=== PATIENT | male | born 1950 | race Caucasian/White ===

== ENCOUNTER 2021-04-23 09:59 | Outpatient (CLI) | payer MEDICARE, SELFPAY ==
--- NOTE | 2021-04-23 13:17 | WPDPFTINT ---
PFT Procedure Performed PFT Procedure Performed Plethysmography (Lung Vol) Diffusing Cap (DLCO) Flow Vol Loop Spirometry w/o Bronchodil PFT Interpretation This is a pulmonary function test with spirometry, plethysmography and diffusing capacity. The test was performed and results interpreted in accordance with the 2019 and 2005 ATS/ERS Task Force guidelines respectively using the Global Lung Function Initiative-2012 reference equations. Patient demonstrated good effort and cooperation. Reproducibility criteria were met. The quality of the spirometry maneuver was Grade A. Findings: Spirometry: there is decreased maximal expiratory airflow at all lung volumes with concave expiratory flow tracing. The contour the inspiratory flow tracing is normal the FVC is 2.76 L, 66% predicted. The FEV1 is 1.00 L, 32% predicted. The FEV1: FVC ratio is 36%. Plethysmography: Total lung capacity is 7.29 L, 107% predicted. The functional residual capacity is 5.46 L, 153% predicted. The residual volume is 4.53 L, 193% predicted. Diffusing capacity: The diffusion capacity unadjusted for hemoglobin is 10.8, 41% predicted. The diffusing capacity adjusted for alveolar volume is 2.99, 74% predicted. Impression: There is a very severe obstructive abnormality. The increase in residual volume is consistent with air trapping from an obstructive abnormality. Hyperinflation is present is demonstrated by the increase in functional residual capacity and is consistent with an obstructive abnormality. The diffusing capacity unadjusted for hemoglobin is moderately decreased and normalizes when adjusted for alveolar volume. There are no prior studies for comparison
== END 2021-04-23 10:00 | disposition home or self-care (01) ==
LOC: ANHPFT 10:03
PROVIDERS: Visit Provider Internal Medicine Cardiovascular Disease
DX: R06.00 Dyspnea, unspecified (principal); R94.2 Abnormal results of pulmonary function studies; Z87.891 Personal history of nicotine dependence
CPT/HCPCS: 94375; 94726; 94729

== ENCOUNTER 2021-07-11 12:31 | Outpatient (CLI) | payer MEDICARE, SELFPAY ==
--- NOTE | 2021-07-11 15:54 | WPDSIXMINUTE ---
Six Minute Walk Procedure Procedure Performed Pulmonary Stress Test (6 min walk) Six Minute Walk This is a 6 minute walk test. The test was performed and interpreted in accordance with the 2014 ERS/ATS task force guidelines. Findings: The patient's resting room air oxygen saturation measured by pulse oximetry was 96% and heart rate was 118 bpm. Patient ambulated for 244 meters and oxygen saturation remained 90 to 94%. Heart rate at the end of the study was 105 bpm. The patient did not qualify for supplemental oxygen at rest or with ambulation. There are no prior studies for comparison.
== END 2021-07-11 12:32 | disposition home or self-care (01) ==
PROVIDERS: PCP Internal Medicine; Visit Provider Internal Medicine Pulmonary Disease
DX: J40 Bronchitis, not specified as acute or chronic (principal); J44.9 Chronic obstructive pulmonary disease, unspecified; R91.1 Solitary pulmonary nodule; Z72.0 Tobacco use
CPT/HCPCS: 94618

== ENCOUNTER 2021-07-11 12:38 | Outpatient (CLI) | payer MEDICARE, SELFPAY ==
--- NOTE | ~2021-07-11 | CT_ITS ---
EXAMINATION: CT diagnostic chest wo con DATE: 07/11/2021 13:41 INDICATION: Chronic obstructive pulmonary disease TECHNIQUE: Computed tomography (CT) of the chest was performed without intravenous contrast. Automate d exposure control and iterative reconstruction technique were employed. Exam dose: 156.64 mGy-cm to yifan exam DLP. COMPARISON: 12/11/2020 CT chest FINDINGS: There are several areas of mild focal tree-in-bud infiltrate in the lower lobes, right grea ter than left, which may represent mild focal areas of pneumonia or postinfection residue. No pulmonary infiltrate or consolidation is noted otherwise. Mild emphysematous changes. Aortic, coronary and great vessel calcification. No thoracic aortic aneurysm. No hilar or mediastinal mass lesion or lymphadenopathy. There is an approximately 7.7 mm stone in the dependent aspect of the neck of the gallbladder. No gal lbladder wall thickening or gallbladder distention is noted. Splenomegaly Partially visualized upper right anterior wall spigelian hernia Status post lower anterior cervical spine surgical fusion. Prominent degenerative disc disease in the lower cervical spine Degenerative change of the thoracic spine. Mild T6 anterior wedge compression fracture deformity, lik rick chronic. Moderate degenerative disease and mild retrolisthesis at L1-2. Multiple old healed bilateral rib fractures.. IMPRESSION: Several small mild focal areas of chronic tree-in-bud infiltrate in the lower lobes, rig ht greater than left,, likely mild postinfection residue/scarring Splenomegaly Cholelithiasis Right upper anterior abdominal wall spigelian hernia Reviewed, dictated and finalized at [facility]. Reviewed, dictated and finalized at location [facility]. IMPRESSION: Several small mild focal areas of chronic tree-in-bud infiltrate i n the lower lobes, right greater than left,, likely mild postinfection residue/ scarring Splenomegaly Cholelithiasis Right upper anterior abdominal wall spigelian hernia
== END 2021-07-11 12:39 | disposition home or self-care (01) ==
LOC: ANHIMG 12:39
PROVIDERS: PCP Internal Medicine; Visit Provider Internal Medicine Pulmonary Disease
DX: R91.1 Solitary pulmonary nodule (principal); J44.9 Chronic obstructive pulmonary disease, unspecified; R16.1 Splenomegaly, not elsewhere classified; K80.20 Calculus of gallbladder without cholecystitis without obstruction; K43.9 Ventral hernia without obstruction or gangrene; I70.0 Atherosclerosis of aorta
CPT/HCPCS: 71250; 94618

== ENCOUNTER 2023-12-24 10:11 | Outpatient (CLI) | payer MEDICARE, SELFPAY ==
--- NOTE | ~2023-12-24 | CT_ITS ---
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 Addition al 3D reconstructions utilizing coronal maximum intensity projection (MIP) were performed. Automated exposure control and iterative reconstruction technique were employed. The dose-length product was 26 8.96 mGy-cm. COMPARISON: 07/11/2021 FINDINGS: Moderate emphysema with mild bronchiectasis. Interval increase in size of a previously 5 x 4 mm, curr ently 7 x 5 mm nodule in the posterior basilar segment of the left lower lobe. There are a few additi onal scattered unchanged <4 mm nodules consistent with old granulomatous disease. No pneumonia, pulmo nary edema or pleural effusion. Heart size normal. Atherosclerotic coronary artery calcification. Ect atic ascending thoracic aorta measuring up to 4.2 cm in maximal diameter. No pathologically enlarged abdominal or pelvic lymphadenopathy. Partially visualized splenomegaly measuring at least 14.6 cm in maximal diameter with scattered small calcified nodules consistent with old granulomatous disease. Th ere are couple calcified gallstones in the gallbladder which is dilated to 4.5 cm diameter with subtl e indistinctness to the boundaries between the gallbladder and surrounding fat which raises some susp icion for acute cholecystitis. There is intra and extrahepatic ductal or ductal dilation the common b ile duct measuring up to 1.4 cm. The distal common bile duct extends below the inferior margin of jordyn ging precluding assessment for a distal obstructing stone or mass. Moderate to severe upper thoracic prominent spondylosis. Partially visualized C4-C6 instrumented anterior spinal fusion with plate and screw fixation. Multiple old healed bilateral rib fractures. IMPRESSION: 1. Moderate emphysema with slight increase in size in the 2 1/2 years since the prior study of a now 7 x 5 mm indeterminate nodule in the posterior basilar segment of the left lower lobe. Recommend 6 mo nth follow-up low-dose noncontrast chest CT. 2. Cholelithiasis with intra and extra hepatic biliary ductal dilation and dilation of the gallbladde r raising concern for distal obstructing lesion and possible acute cholecystitis. Correlate for Kyara y sign and with liver function tests. Could consider either MRCP or HIDA scan for further evaluation as clinically indicated. 3. Ectatic ascending thoracic aorta measuring up to 4.2 cm maximal diameter. 4. Nonspecific splenomegaly. Reviewed, dictated and finalized at location [facility]. IMPRESSION: 1. Moderate emphysema with slight increase in size in the 2 1/2 years since the prior study of a now 7 x 5 mm indeterminate nodule in the posterior basilar se gment of the left lower lobe. Recommend 6 month follow-up low-dose noncontrast chest CT. 2. Cholelithiasis with intra and extra hepatic biliary ductal dilation and dila tion of the gallbladder raising concern for distal obstructing lesion and possi ble acute cholecystitis. Correlate for Molina sign and with liver function test s. Could consider either MRCP or HIDA scan for further evaluation as clinically indicated. 3. Ectatic ascending thoracic aorta measuring up to 4.2 cm maximal diameter. 4. Nonspecific splenomegaly.
== END 2023-12-24 10:12 | disposition home or self-care (01) ==
PROVIDERS: PCP Nurse Practitioner Family; Visit Provider Nurse Practitioner Family
DX: I71.21 Aneurysm of the ascending aorta, without rupture (principal); J43.9 Emphysema, unspecified; R91.1 Solitary pulmonary nodule; K80.20 Calculus of gallbladder without cholecystitis without obstruction; K83.8 Other specified diseases of biliary tract; K82.8 Other specified diseases of gallbladder; R16.1 Splenomegaly, not elsewhere classified
CPT/HCPCS: 71250

== ENCOUNTER 2025-02-05 10:27 | Outpatient (CLI) | payer MEDICARE, SELFPAY ==
--- OUTSIDE RECORDS SUMMARY | 2024-01-03 08:30 | XMS_ITS ---
Author Organization [facility] Address [address] [place] [address] Care Team Providers Care Fire Regulator Name Role Phone Angelita Smith MD Primary Care Provider Unavail teena BAUMAN MD, JARON Unavailable REASON FOR VISIT ERCP INPT Encounters Encounter Location Date Provider Diagnosis [facility] - Op [address] GI Scheduling [place], [place] [id number] 01/03/2024 JARONTK BAUMAN Plan Of Treatment No Information Progress Notes * VANESSAARGENIS Reyes ADOB: (74 yo M)Acc No.[id number]:01/03/2024 Patient: Reyes DAVILA Provider: Charleen Bauman MD, FASGE :1950 A ge:73 Y S ex:Male Date:01/03/2024 Address:[address], [facility] Pcp:Angelita Smith MD * * Electronic signature of CONSTANCE BAUMAN MD, MD on 02/05/2025 at 12:37 PM EST Sign off status: Pending * Provider: Charleen Bauman MD, FASGE Date: 0 01/03/2024 Generated for Printi ng/Faxing/eTransmitting on: 1 04/07/2024 12:37 PM EST
--- OUTSIDE RECORDS SUMMARY | 2024-01-31 08:00 | XMS_ITS ---
Author Organization [facility] Address [address] [place] [address] Care Team Providers Care Applications Engineer Manufacturing Name Role Phone Luis ORDONEZ, Angelita Primary Care Provider Unavail teena BAUMAN MD, JARON Unavailable [phone] REASON FOR VISIT ERCP w/stent pull/No Auth Req* Encounters Encounter Location Date Provider Diagnosis [facility] - Op [address] GI Scheduling [place], [place] [id number] 01/31/2024 JARON MITUL Plan Of Treatment No Information Progress Notes * Reyes BALTAZAR ADOB: (74 yo M)Acc No.[id number]:01/31/2024 Patient: Reyes DAVILA Provider: Charleen Bauman MD, FASGE :1950 A ge:73 Y S ex:Male Date:01/31/2024 Address:[facility] [address], [facility] [place] Pcp:Angelita Smith MD * * Electronic signature of CONSTANCE BAUMAN MD, MD on 02/05/2025 at 12:37 PM EST Sign off status: Pending * Provider: Charleen Bauman MD, FASGE Date: Generated for Printi ng/Faxing/eTransmitting on: 04/07/2024 12:37 PM EST
--- NOTE | ~2025-02-05 | CT_ITS ---
EXAMINATION: CT diagnostic chest wo con DATE: 02/05/2025 11:04 INDICATION: Nonspecific findings of the lungs. Emphysema. Follow-up 6 mm left lower lobe nodule. TECHNIQUE: Computed tomography (CT) of the chest was performed without intravenous contrast. The dose-length product was 100.86 mGy-cm. Automated exposure control and iterative reconstruction technique were employed. COMPARISON: Comparison to multiple prior studies sequentially, with oldest reviewed study dated 07/11/2021. FINDINGS: Heart size normal. No significant pleural or pericardial effusion. No thoracic lymphadenopathy. Mild ectasia of the ascending thoracic aorta measuring 4 cm with atherosclerosis. There is splenomegaly. There is a 2-3 mm right upper lobe nodule unchanged. There is a stable 5 mm left lower lobe nodule unchanged from prior study. There is a 3 mm left lower lobe nodule, image 94. There is emphysema. No new pulmonary nodules or masses. No endobronchial lesions. IMPRESSION: 1. Lung-RADS category 2: Benign appearance or behavior. Continue annual screening with noncontrast low-dose chest CT in 12 months. Reviewed, dictated and finalized at location O. TER PLATE IMPRESSION: 1. Lung-RADS category 2: Benign appearance or behavior. Continue annual screeni ng with noncontrast low-dose chest CT in 12 months.
--- OUTSIDE RECORDS SUMMARY | 2025-02-05 11:36 | XMS_ITS | Encounter Summary ---
Author Organization [facility] Address [facility] [place] [address] Care Team Providers Care Tractor Trailer Mechanic Name Role Phone Angelita Smith MD Primary Care Provider [phone] Lucy Malik MD Primary Care Provider [phone] [facility] Primary Care Provider + Encounter Details Date Type Department Care Team (Latest Contact Info) Description 05/09/2021 MyChart Message Enc [facility] Family & Internal Medicine [facility] [id number] [place] [phone] Angelita Smith [place] [id number] [place] [address] Reyes Helton, Barrel Filler at [facility] Social History Tobacco Use Types Packs/Day Years Used Date Smoking Tobacco: Former Cigarettes 2 31 0 10/03/1970 - 10/03/2001 Cigars Smokeless Tobacco: Never Comments:Patient smokes a ci gar 3-4 in a year Alcohol Use Standard Drinks/Week Comments Not Currently 0 (1 standard drink = 0.6 oz pur e alcohol) 12 pack of beer a day PHQ-2 Answer Date Recorded PHQ-2 Score - If the patient scores above 3, please move on to questions 3-9 0 04/10/2020 Sex and Gender Information Value Date Recorded Sex Assigned at Not on file Legal Sex Male 4:11 PM CDT Gender Identity Not on file Sexual Orientation Not on file documented as of this encounter Plan of Treatment Not on file documented as of this encounter Visit Diagnoses Not on filedocumented in this encounter Additional Health Concerns Assessment Noted Time PHQ-9 Depression Total Score: 0 04/10/19 21 3:[address] MAN documented as of this encounter Care Teams Tractor Trailer Mechanic Relationship Specialty Start Date End Date Angelita Smith MD PCP - General INTERNAL MEDICINE 10/10/18 06/17/22 [place] [phone] [facility] [address] [place] [address] PCP - General FAMILY PRACTICE 06/18/22 05/18/23 Ana Luisa Reed, NIGHT COORDINATOR- [address] [place] [address] [place] [address] PCP - General Nurse Practitioner Family 01/01/24 documented as of this encounter
--- OUTSIDE RECORDS SUMMARY | 2025-02-05 11:36 | XMS_ITS | Clinical Summary ---
Author Organization [employer] Address [address] [place] [address] Care Team Providers Care Manager Life Name Role Phone Angelita Smith MD Primary Care Provider [phone] Source Comments [facility] [employer],non-owned Affiliates and Associated Physician Practices is amultiple site organization consisting of ambulatory clinics and hospital sitesin [place], [place] and [place]. This disclosure is being madepursuant to the Care Everywhere program and may not contain all information available regarding this patient. Last updated [employer] Allergies No known active allergies Medications * Be aware that medications may not be up to date on this document. Alwaysverify current medications with the patient. losartan (COZAAR) 50 MG tablet Take 50 mg by mouth once daily 3 12/15/2018 Active HYDROcodone-javier taminophen (NORCO) 5-325 MG tablet TAKE 1 TO 2 TABLETS BY MOUTH EVERY 4 HOURS NEEDED FOR PAIN 0 01/11/2019 Active albuterol HFA (PROAIR HFA) 108 (90 Base) MCG/ACT inhaler INHALE 1 TO 2 PUFFS BY MOUTH 4 TIMES DAILY NEEDED 09/06/2018 Active cephalexin (KEFLEX) 500 MG capsuleIndicati ons:tid prn Take 500 mg by mouth 3 times daily Tid prn Reasons: tid prn 2 01/10/2019 Active mesalamine EC (LIALDA) 1.2 g tablet TAKE 2 TABLETS BY MOUTH ONCE DAILY WITH FOOD 3 10/11/2018 Active VITAMIN D, CHOLECALCIFEROL , PO Take 25 mcg by mouth once daily Active Ascorbic Acid 1000 MG Take by mouth once daily Active Cyanocobalamin (B-12) 500 MCG Take by mouth once daily Active Potassium Iodide 32.5 (24 I) MGIndications:2 04mg + 225mcg Take by mouth once daily Reasons: 204mg + 225mcg Active phenylephrine (SUDAFED PE) 10 MG tablet Take 10 mg by mouth 4 times daily Active Active Problems No known active problems Family History Medical History Relation Name Comments Arthritis - Rheumatoid Father Hypertension Father Cancer Sister 4 Diabetes Sister 5 Heart Failure Sister 6 Hypertension Sister 7 Arthritis - Osteo Sister 8 Relation Name Status Comments Brother Alive Father Mother Sister 1 Alive Sister 2 Sister 3 Sister 4 Sister 5 Sister 6 Sister 7 Sister 8 Social History Tobacco Use Types Packs/Day Years Used Date Smoking Tobacco: Former Cigarettes 2 40 1 - 02/02/2004 Smokeless Tobacco: Never Alcohol Use Standard Drinks/Week Comments Yes 84 (1 standard drink = 0.6 oz pu re alcohol) Sex and Gender Information Value Date Recorded Sex Assigned at Not on file Legal Sex Male 6:08 AM PHYSICIAN COMPENSATION ANALYST Gender Identity Not on file Sexual Orientation Not on file Last Filed Vital Signs Vital Sign Reading Time Taken Comments Blood Pressure 163/101 03/07/2019 3:12 PM PHYSICIAN COMPENSATION ANALYST Pulse 98 03/07/2019 3:12 PM PHYSICIAN COMPENSATION ANALYST Temperature 36.3 C (97.3 F) 03/07/2019 2:42 PM PHYSICIAN COMPENSATION ANALYST Respiratory Rate 13 03/07/2019 3:12 PM PHYSICIAN COMPENSATION ANALYST Oxygen Saturation 99% 03/07/2019 3:12 PM PHYSICIAN COMPENSATION ANALYST Inhaled Oxygen Concentration - - Weight 83.9 kg (185 lb) 03/07/2019 12:56 PM PHYSICIAN COMPENSATION ANALYST Height 175.3 cm (5' 9) 03/07/2019 12:56 PM PHYSICIAN COMPENSATION ANALYST Body Mass Index 27.32 03/07/2019 12:56 PM PHYSICIAN COMPENSATION ANALYST Plan of Treatment Health Maintenance Due Date Last Done Comments COLOGUARD (AGES 45-75) - COL ON CA SCREENING 1950 CT COLONOGRAPHY - COLON CA SCREENING 1950 FIT - COLON CA SCREENING 1950 FLEX SIG - COLON CA SCREENING 1950 LIPID TESTING 1950 DTAP/TDAP/TD VACCINES (1 - Tdap) 09/24/1971 PNEUMOCOCCAL VACCINE 50+ (1 of 1 - PCV) 2002 ZOSTER VACCINE (1 of 2) 2002 AAA SCREENING 2017 SCREENING FOR DIABETES 02/09/2022 02/09/2019 DEPRESSION SCREENING 04/05/2024 MEDICARE AWV CALENDAR YEAR 2024 COVID-19 VACCINE (4 - 2024-2 6 season) 2024 10/22/2021, 08/28/2020, 07/31/2020 INFLUENZA VACCINE (#1) 2024 06/05/2020 Respiratory Syncytial Virus (RSV) Vaccine Pt: or over 60 yrs (1 - 1-dose 75+ series) 09/24/2027 COLON MONITORING 03/07/2029 03/07/2019, 03/07/2019 COLONOSCOPY - COLON CA SCREENING 03/07/2029 03/07/2019, 03/07/2019 Colorectal Cancer Screening 03/07/2029 HEPATITIS C SCREENING Completed 02/09/2019 HEPATITIS B VACCINE Aged Out No longe r eligible based on patient's age to complete this topic HIB VACCINE Aged Out No longer eligi ble based on patient's age to complete this topic HPV VACCINE Aged Out No longer eligi ble based on patient's age to complete this topic MENINGOCOCCAL (Group B) VACCINE SHARED DECISION-MAKING Aged Out No longer eligible based on patient's age to complete this topic MENINGOCOCCAL GROUPS A/C/Y/W VACCINE Aged Out No longer eligible b ased on patient's age to complete this topic Goals Goal Patient Goal Type Associated Problems Recent Progress Patient-Stated? Author Medication Management General On track( 019 1:48 PM CDT) Shani Rivera, RN Note: Expected end date: ongoing Interventions: Take all medications as prescribed Let your doctor know right away about any changes in your medications Make sure to request a refill of your medication at least one week prior to your last dose Procedures Procedure Name Priority Date/Time Associated Diagnosis Comments ENDOSCOPY, COLON, DIAGNOSTIC Routine 03/07/2019 1:28 PM PHYSICIAN COMPENSATION ANALYST COMPREHENSIVE METABOLIC PANEL Routine 02/09/2019 12:19 PM PHYSICIAN COMPENSATION ANALYST Perianal abscess HEPATITIS C ANTIBODY Routine 02/09/2019 12:19 PM PHYSICIAN COMPENSATION ANALYST Need for hepatitis C screening test from Last 3 Months or Most Recently Relevant to Health Maintenance Results * ENDOSCOPY, COLON, DIAGNOSTIC (03/07/2019 1:28 PM PHYSICIAN COMPENSATION ANALYST) Report Endoscopy POC Endoscopy Department Report __ _ Patient Name: Reyes Baltazar Procedure Date: 03/07/2019 1:28 PM Date of : 1950 Classification: Outpatient Gender: Male Ethnicity: Not or Race: White __ _ Providers: Dilma Moser MD, Zee Parra (Fellow) Referring MD: Angelita Smith (Referring MD) Procedure: Colonoscopy Indications: Suspected colitis, perinanal abscesses s/p seton placement Medications: Monitored Anesthesia Care Comorbidities Hidradenitis suppurutiva Description of Procedure: Pre-Anesthesia Assessment: - Prior to the procedure, a History and Physical was performed, and patient medications and allergies were reviewed. The patient's tolerance of previous anesthesia was also reviewed. The risks and benefits of the procedure and the sedation options and risks were discussed with the patient. All questions were answered, and informed consent was obtained. Prior Anticoagulants: The patient has taken no previous anticoagulant or antiplatelet agents. ASA Grade Assessment: III - A patient with severe systemic disease. After reviewing the risks and benefits, the patient was deemed in satisfactory condition to undergo the procedure. After I obtained informed consent, the scope was passed under direct vision. Throughout the procedure, the patient's blood pressure, pulse, and oxygen saturations were monitored continuously. The PCF-[id number] was introduced through the anus and advanced to the terminal ileum, with identification of the appendiceal orifice and IC valve. The colonoscopy was performed without difficulty. The patient tolerated the procedure well. The terminal ileum, ileocecal valve, appendiceal orifice, and rectum were photographed. The quality of the bowel preparation was good. Findings: The perianal exam findings include multiple perianal fistulas that were actively draining. Setons were in place. A diffuse area of moderately congested, erythematous, friable (with contact bleeding) and tgkfkqry-lctgbel-mr creased mucosa was found in the rectum colon. Biopsies were taken with a cold forceps for histology. There was evidence of a patent end colostomy in the transverse colon. This was characterized by healthy appearing mucosa. There was decreased vascular pattern in the transverse colon upon entering the ostomy and all the way to 22 cm with multiple pseudopolyps and diverticuli containing psudopolyps. There was no evidence of active inflammation ot ulceration This was biopsied with a cold forceps for histology. (placed in same jar as stricture biopsy) A benign-appearing, intrinsic moderate stenosis at 20 cm measuring 5mm (in length) x 1.4 cm (inner diameter) was found in the transverse colon and was traversed. Biopsies were taken with a cold forceps for histology. Multiple Pseudopolyps were found in the transverse colon. One polyp was removed with a cold snare. Resection and retrieval were complete. Five sessile polyps were found in the transverse colon and ascending colon. The polyps were 4 to 5 mm in size. These polyps were removed with a jumbo cold forceps. Resection and retrieval were complete. The terminal ileum appeared normal. Estimated Blood Loss: Estimated blood loss was minimal. Complications: No immediate complications. 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 - Congested, erythematous, mildly friable (with contact bleeding), inflamed, gzwptdxa-mkayttq-al creased mucosa in the rectum. Biopsied. - Patent end colostomy with healthy appearing mucosa at the stoma. - Decreased vascular pattern and multiple psudopolyps from stoma and up to 22 cm - Pseudopolyps in the transverse colon. Resected and retrieved. - Stricture in the transverse colon at 20 cm. Biopsied. - Five 4 to 5 mm polyps in the transverse colon and in the ascending colon, removed with a jumbo cold forceps. Resected and retrieved. - The examined portion of the ileum was normal. Recommendation: - Patient has a contact number available for emergencies. The signs and symptoms of potential delayed complications were discussed with the patient. Return to normal activities tomorrow. Written discharge instructions were provided to the patient. - Resume previous diet. - Continue present medications. - Await pathology results. - Repeat colonoscopy is recommended. The colonoscopy date will be determined after pathology results from today's exam become available for review. - MRI pelvis - Return to GI clinic as previously scheduled. - Dermatology evaluation for Hidradenitis Procedure Code(s): --- Professional --- 25116, Colonoscopy, flexible; with removal of tumor(s), polyp(s), or other lesion(s) by snare technique 04948, 59, Colonoscopy, flexible; with biopsy, single or multiple Diagnosis Code(s): --- Professional --- K60.2, Anal fissure, unspecified K60.3, Anal fistula K92.2, Gastrointestinal hemorrhage, unspecified K52.9, Noninfective gastroenteritis and colitis, unspecified K63.3, Ulcer of intestine K63.89, Other specified diseases of intestine Z93.3, Colostomy status D12.3, Benign neoplasm of transverse colon (hepatic flexure or splenic flexure) D12.2, Benign neoplasm of ascending colon K51.412, Inflammatory polyps of colon with intestinal obstruction CPT copyright 2016 [employer]. All rights reserved. The codes documented in this report are preliminary and upon environmental resource specialist review may be revised to meet current compliance requirements. ___ Dilma Moser MD 03/07/2019 3:51:57 PM Note Initiated On: 03/07/2019 1:28 PM Number of Addenda: 0 [facility] [address] [facility] [place] [address] [facility] [employer] 03/07/2019 1:28 PM PHYSICIAN COMPENSATION ANALYST us Zee Parra MD GI PROCEDURE ORDERABLES Edited Result - Final OMER GUTIERREZ * (ABNORMAL) COMPREHENSIVE METABOLIC PANEL (02/09/2019 12:19 PM PHYSICIAN COMPENSATION ANALYST) Glucose 104(H) 65 - 99 mg/dL [facility] INSURANCE BILL BUN 9 8 - 27 mg/dL [facility] INSURANCE BILL Creatinine 0.82 0.76 - 1.27 mg/dL [facility] INSURANCE BILL eGFR by MDRD 92 >59 mL/min/1.7 3 [facility] INSURANCE BILL eGFR by MDRD 107 >59 mL/min/1.7 3 [facility] INSURANCE BILL BUN/Creatinine Ratio 11 10 - 24 [facility] INSURANCE BILL Sodium 138 134 - 144 mmol/L [facility] INSURANCE BILL Potassium 4.5 3.5 - 5.2 mmol/L [facility] INSURANCE BILL Chloride 98 96 - 106 mmol/L [facility] INSURANCE BILL CO2 23 20 - 29 mmol/L [facility] INSURANCE BILL Calcium 9.2 8.6 - 10.2 mg/dL [facility] INSURANCE BILL Protein Total 6.5 6.0 - 8.5 g/dL [facility] INSURANCE BILL Albumin 4.5 3.6 - 4.8 g/dL [facility] INSURANCE BILL Globulin Total 2.0 1.5 - 4.5 g/dL [facility] INSURANCE BILL Albumin/Globulin Ratio 2.3(H) 1.2 - 2.2 [facility] INSURANCE BILL Bilirubin Total 1.7(H) 0.0 - 1.2 mg/dL [facility] INSURANCE BILL Alkaline Phosphatase 61 39 - 117 IU/L [facility] INSURANCE BILL AST 20 0 - 40 IU/L [facility] INSURANCE BILL ALT 12 0 - 44 IU/L [facility] INSURANCE BILL Comment:FASTING Blood BLOOD SPECIMEN / Unknown 02/09/2019 12:19 PM PHYSICIAN COMPENSATION ANALYST 02/09/2019 Narrative Resulting Agency Comment Lab Testing performed at: [facility] [address] [facility] [id number] Dilma Moser MD LAB - CHEMISTRY ORDERABLES Final Result [facility] INSURANCE BILL [address] [place] [address] * HEPATITIS C ANTIBODY (02/09/2019 12:19 PM PHYSICIAN COMPENSATION ANALYST) Hepatitis C Antibody <0.1 0.0 - 0.9 s/co ratio [facility] INSURANCE BILL Comment: Negative: < 0.8 Indeterminate: 0.8 - 0.9 Positive: > 0.9 . The CDC recommends that a positive HCV antibody result be followed up with a HCV Nucleic Acid Amplification test (010005). FASTING Blood BLOOD SPECIMEN / Unknown 02/09/2019 12:19 PM PHYSICIAN COMPENSATION ANALYST 02/09/2019 Narrative Resulting Agency Comment [facility] [address] [facility] [id number] Dilma Moser MD LAB - CHEMISTRY ORDERABLES Final Result [facility] INSURANCE BILL [address] [place] [address] from Last 3 Months or Most Recently Relevant to Health Maintenance Insurance [facility] MANAGED MEDICARE ADV [facility] MANAGED MEDICARE ADV Care Teams Manager Life Relationship Specialty Start Date End Date Angelita Smith MD PCP - General Internal Medicine 01/20/19
--- OUTSIDE RECORDS SUMMARY | 2025-02-05 11:36 | XMS_ITS | Patient Health Record ---
Author Organization [facility] Address [address] [place] [address] Care Team Providers Care Senior Copywriter Name Role Phone Luis ORDONEZ, Angelita Primary Care Provider Unavail able MITUL ORDONEZ, JARON Unavailable [phone] Reason For Referral No Information Plan Of Treatment Pending Test Test Name Order Date Endoscopic Retrograde Cholangiopancreato graphy (ERCP) 01/13/2024 Insurance Providers Payer Name Payer Address Payer Phone Subscriber Number Group Number Insured Name Patient Relationship to Insured Coverage Start Date Coverage End Date A[employer]-Medic are Complete [address] [address] [place] [address] [id number] Reyes Womack Self - patient is the insured
--- OUTSIDE RECORDS SUMMARY | 2025-02-05 11:37 | XMS_ITS | Encounter Summary ---
Author Organization [facility] Address [facility] [place] [address] Care Team Providers Care Sap Ppm Consultant Name Role Phone Angelita Smith MD Primary Care Provider [phone] Lucy Malik MD Primary Care Provider [phone] Ana Luisa Reed [facility] Primary Care Provider + Encounter Details Date Type Department Care Team (Late st Contact Info) Description 03/11/2021 MyChart Message Enc [facility] Family & Internal Medicine [facility] [id number] [place] [phone] Angelita Smith MD [id number] [place] [phone] My non-healing surgical wound Social History Tobacco Use Types Packs/Day Years [...] on file documented as of this encounter Progress Notes * Jaqueline Monreal RN - 03/12/2021 8:39 AM CST Printed to discuss with Dr. Goldstein CTOR OF VIDEO ANALYTICS documented in this encounter Plan of Treatment Not on file documented as of this encounter Visit Diagnoses Not on filedocumented in this encounter Additional Health Concerns Assessment Noted Time PHQ-9 Depression Total Score: 0 04/10/19 21 3:48 PM DIRECTOR OF VIDEO ANALYTICS documented as of this encounter Care Teams Sap Ppm Consultant Relationship Specialty Start Date End Date Angelita Smith MD PCP - General INTERNAL MEDICINE 10/10/18 06/17/22 [place] [address] [facility] [facility] [address] [place] [address] PCP - General FAMILY PRACTICE 06/18/22 05/18/23 Ana Luisa Reed CLIENT SERVICE CONSULTANT- [address] [facility] [address] PCP - General Nurse Practitioner Family 01/01/24 documented as of this encounter
--- OUTSIDE RECORDS SUMMARY | 2025-02-05 11:37 | XMS_ITS | Clinical Summary ---
Author Organization [facility] Address [address] [place] [id number] Care Team Providers Care Sueding And Buffing Machine Operator Name Role Phone Marvin Riddle MD Unavailable [phone] Angelita Smith MD Unavailable [phone] Dilma Moser MD Unavailable [phone] Pratibha Bailey MD Unavailable [phone] Tl Munoz MD Unavailable [phone] Lino Valero MD Unavailable [phone] Angelita Smith MD Primary Care Provider [phone] Sea Parker MD Unavailable [phone] Ana Luisa Reed NP Unavailable [phone] Allergies No known active allergies Medications cholecalciferol (VITAMIN D-3) 2000 unit tablet Take 0.0125 tablets (25 Units total) by mouth every morning Active cyanocobalamin (Vitamin B-12) 500 mcg tablet Take 1 tablet (500 mcg total) by mouth every morning 0 Active potassium iodide 130 mg tablet tablet Take 1 tablet (130 mg total) by mouth every morning 0 Active ascorbic acid (VITAMIN C) 1,000 mg tablet Take 1 tablet (1,000 mg total) by mouth every morning Active cephalexin (KEFLEX) 500 mg capsule Take 1 capsule (500 mg total) by mouth 3 (three) times a day as needed Active acetaminophen (TYLENOL) 325 mg tablet Take 2 tablets (650 mg total) by mouth every 4 (four) hours as needed for pain, headaches or fever Active albuterol HFA (PROVENTIL HFA,VENTOLIN HFA,PROAIR HFA) 90 mcg/actuation inhaler Inhale 2 puffs every 6 (six) hours as needed for wheezing or shortness of breath Active albuterol 2.5 mg /3 mL (0.083 %) nebulizer solution Take 3 mL (2.5 mg total) by nebulization every 6 (six) hours as needed for wheezing or shortness of breath Active magnesium oxide (MAG-OX) 400 mg (241.3 mg elemental magnesium) tabletIndicatio ns:hypomagnesem ia Take 1 tablet (400 mg total) by mouth daily Active umeclidinium-vi lanteroL (ANORO ELLIPTA) 62.5-25 mcg/actuation blister with device Inhale 1 puff once daily Active Active Problems Problem Noted Date Diagnosed Date COPD without exacerbation 01/02/2024 Obstructive jaundice 01/02/2024 Acute biliary pancreatitis 01/02/2024 Aneurysm of ascending aorta 01/02/2024 Cholecystitis 01/01/[address] 02/12/2020 Hydradenitis 11/20/2019 Lymphadenopathy 12/24/2017 Resolved Problems Problem Noted Date Diagnosed Date Resolved Date Parastomal hernia 11/28/2019 02/12/2020 Anal fistula 11/20/2019 02/12/2020 Ventral hernia without obstr uction or gangrene 11/20/2019 02/12/2020 Surgical History Surgery Date Site/Laterality Comments PILONIDAL CYSTECTOMY COLOSTOMY SIGMOIDECTOMY COLONOSCOPY 03/05/2019 - 04/04/2019 NASAL SEPTUM SURGERY UPPER GASTROINTESTINAL ENDOSCOPY REVISION COLOSTOMY 01/23/2020 OTHER SURGICAL HISTORY 01/23/2020 Resction of Abdominoperineal OTHER SURGICAL HISTORY 01/23/2020 Lysis of Adhesion COLON SURGERY 02/03/2017 - 03/04/2017 UMBILICAL HERNIA REPAIR Medical History Medical History Date Comments Pilonidal cyst Hydradenitis Anxiety HTN (hypertension) Diverticulosis Perforated diverticulum Osteoarthritis COPD (chronic obstructive pu lmonary disease) Ulcerative colitis Splenomegaly mild per 2019 CT , released from [facility] in 2018 Chronic bronchitis (HCC) 04/25 Family History Medical History Relation Name Comments No Known Problems Brother Arthritis Father Saran Hypertension Father Saran COPD Mother Mary Colon cancer Paternal Grandmother Coronary artery disease Sister Relation Name Status Comments Brother Alive Father Saran Mother Mary Paternal Grandmother Sister Social History Tobacco Use Types Packs/Day Years Used Date Smoking Tobacco: Former Cigarettes 2 42 0 04/05/1967 - 04/05/2009 Smokeless Tobacco: Never Tobacco Cessation:Counseling Given: Not Answered Alcohol Use Standard Drinks/Week Comments Yes 9 (1 standard drink = 0.6 oz pur e alcohol) 9 beers per day [facility] Utilities Answer Date Recorded In the past 12 months has e D[employer], gas, oil, or water [employer] threatened to shut off services in your home? No 01/03/2024 Social Connection and Isolation Panel Answer Date Recorded In a typical week, how many times do you talk on the phone with family, friends, or neighbors? More than three times a week 01/03/2024 How often do you get togethe r with friends or relatives? More than three times a week 01/03/2024 How often do you attend [facility] or sikhism services? Never 01/03/2024 Do you belong to any clubs o r organizations such as orthodox groups, unions, fraternal or athletic groups, or school groups? No 01/03/2024 How often do you attend meet ings of the clubs or organizations you belong to? Never 01/03/2024 Are you , , di vorced, , never , or living with a partner? 01/03/2024 AUDIT-C Answer Date Recorded Q1: How often do you have a drink containing alcohol? Never 01/17/2024 Q2: How many drinks containi ng alcohol do you have on a typical day when you are drinking? Patient does not drink Q3: How often do you have si x or more drinks on one occasion? Never 01/17/2024 Overall Financial Resource Strain (CARDIA) Answe r Date Recorded How hard is it for you to pa y for the very basics like food, housing, medical care, and heating? Not hard at all 01/03/2024 Hunger Vital Sign Answer Date Recorded Within the past 12 months, y ou worried that your food would run out before you got the money to buy more. Never true 01/03/20 24 Within the past 12 months, t he food you bought just didn't last and you didn't have money to get more. Never true 01/03/2024 PRAPARE - Transportation Answer Date Re corded In the past 12 months, has l ack of transportation kept you from medical appointments or from getting medications? No 12/06 In the past 12 months, has l ack of transportation kept you from meetings, work, or from getting things needed for daily living? No 01/03/2024 Housing Stability Vital Sign Answer William e Recorded In the last 12 months, was t here a time when you were not able to pay the mortgage or rent on time? No 01/03/2024 Number of Times Moved in the Last Year Not on fi le 01/03/2024 At any time in the past 12 m [facility], were you homeless or living in a intermediate (including now)? No 01/03/2024 Personal Safety Answer Date Recorded Have you ever been in or are you currently in a harmful physical or emotional relationship or is someone making you feel afraid or unsafe? 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 Not on file Not on file Not on file Last Filed Vital Signs Vital Sign Reading Time Taken Comments Blood Pressure 133/80 01/31/2024 3:21 PM CDT Pulse 95 01/31/2024 3:21 PM CDT Temperature 36.6 C (97.8 F) 01/31/2024 1:28 PM CDT Respiratory Rate 19 01/31/2024 3:21 PM CDT Oxygen Saturation 100% 01/31/2024 3:21 PM CDT Inhaled Oxygen Concentration - - Weight 71.7 kg (158 lb) 01/31/2024 1:28 PM CDT Height 175.3 cm (5' 9) 01/31/2024 1:28 PM CDT Body Mass Index 23.33 01/31/2024 1:28 PM CDT Plan of Treatment Health Maintenance Due Date Last Done Comments Colon Cancer Screening-Colonoscopy 1950 Depression Screening 1950 Hepatitis C Screening 1950 Hepatitis B Screening 1970 Well Visit 65+ 2017 Zoster Vaccine (2 of 3) 07/31/2020 06/05/2020 Pneumococcal vaccine 65+ (2 of 2 - PCV) 06/05/2021 06/05/2020 Covid-19 Vaccine (5 - 2024-2 6 season) 2024 10/22/2021, 03/04/2021, 08/28/2020, Additional history exists Influenza Vaccine (#1) 2024 06/05/2020, 2017 Fall Risk Assessment 01/30/2025 01/31/2024, 03/12/20 21 DTaP/Tdap/Td Vaccine (3 - Tdap) 06/05/2030 06/05/2020, 09/25/2019, 09/25/2019 Abdominal Aortic Aneurysm (A AA) Screen Completed 01/01/2024, 02/07/2022, 01/29/2020, Additional history exists Medical Devices Implanted Type Area Assembler Molded Frames Device Identifier Shelf Expiration Date Model / Serial / Lot [employer] Inc/C R Bard [id number] Phasix [id number] Monofilament Scaffold Full Resorbable Square Mesh - Sna - [id number] Implanted:Qty: 1 on 01/23/2020 by Pratibha Bailey MD at [facility] Mesh N/A: Abdomen [employer] Inc/C R Bard [id number] 12/31/2020 [id number] / NA / [id number] Explanted Type Area Assembler Molded Frames Device Identifier Shelf Expiration Date Model / Serial / Lot [employer] Mcgowan Flexi-Stent 4fr 2cm Small Pigtail Straight Flexible .025 [id number] - [id number] Explanted:Qty: 1 on 01/03/2024 at [facility] N/A: Pancreas [employer] 07/04/2028 [id number] / / [id number] [employer] Cotton-Owens 8.5fr 7cm Taper Tip Guidewire Proximal Distal Flap [id number] - [id number] Implanted:Qty: 1 on 01/03/2024 by Sea Parker MD at [facility] Explanted:Qty: 1 on 01/31/2024 by Sea Parker MD at [facility] N/A: Bile Duct [employer] 06/30/2026 [id number] / / [id number] Procedures Procedure Name Priority Date/Time Associated Diagnosis Comments CT ABDOMEN PELVIS W CONTRAST ED Urgent/IP Urgent 01/29/2020 9:36 AM CDT from Last 3 Months or Most Recently Relevant to Health Maintenance Results * CT Abdomen Pelvis W Contrast (01/29/2020 9:36 AM CDT) Anatomical Region Laterality Modality Body N/A Computed Tomogra phy 01/29/2020 10:0 8 AM CDT Impressions 01/29/2020 10:17 AM CDT 1. Interval postsurgical changes of abdominoperineal resection with an end colostomy in the right lower quadrant and repair of a ventral abdominal wall hernia. There is a small amount of fluid, fat stranding and soft tissue thickening in the presacral space measuring up to 3.0 cm which may represent a developing postsurgical collection, however at this time appears predominantly phlegmonous, with no significant organized fluid component. Dictated by: Oliverio Gilliam M.D. The radiology attending physician has personally reviewed this study, and had reviewed and/or edited this written report and agrees with it. Electronically signed by: Kadeem Erwin M.D. Narrative 01/29/2020 10:17 AM CDT EXAMINATION: Computed tomography of the abdomen pelvis with intravenous contrast HISTORY: Abdominoperineal resection with end colostomy. Evaluate for fluid collection. TECHNIQUE: Transaxial computed tomographic images of the abdomen pelvis were obtained with intravenous contrast according to the standard protocol after the uneventful administration of 100 mL Opti-Ray 350 intravenous contrast. COMPARISON: CT chest, abdomen and pelvis 11/25/2019 FINDINGS: Chest: There are trace bilateral pleural effusions and minimal bibasilar atelectasis. No focal consolidation. Normal heart size without pericardial effusion. Calcified atherosclerosis is noted in the coronary arteries. No focal liver lesion gallbladder is at the upper limit of normal for size. No evidence of bile duct dilatation. Spleen is at the upper limit of normal in size and contains punctate calcifications, likely old granulomatous disease. The pancreas, kidneys and right adrenal gland are normal. There is a tiny 3 mm left adrenal nodule which is too small to characterize. No hydronephrosis on either side. The urinary bladder is thick-walled and decompressed with a Toney catheter. The portal, splenic and superior mesenteric veins are patent. Abdominal aorta is normal in course and caliber and contains minimal calcified atherosclerosis. Retroperitoneal lymphadenopathy is noted, which appears improved compared to the prior study. For reference, the largest lymph node is an aortocaval lymph node measuring 1.4 cm in short axis, previously 1.9 cm. Mild bilateral inguinal and iliac chain lymphadenopathy also appears slightly improved. There are interval postsurgical changes of ventral abdominal hernia repair, abdominoperineal resection and end colostomy in the right lower quadrant. A total of 3 surgical drains are in place terminating in the right and left abdominal wall and left pelvis. There is a small amount of presacral fluid, fat stranding and soft tissue thickening measuring at most 3.0 cm at table position -913.5. Bone windows demonstrate moderate multilevel degenerative disc disease, worse at the L3-L4 level. There are no suspicious lytic or blastic lesions. Procedure Note Kadeem Erwin MD - 01/29/2020 EXAMINATION: Computed tomography of the abdomen pelvis with intravenous contrast HISTORY: Abdominoperineal resection with end colostomy. Evaluate for fluid collection. TECHNIQUE: Transaxial computed tomographic images of the abdomen pelvis were obtained with intravenous contrast according to the standard protocol after the uneventful administration of 100 mL Opti-Ray 350 intravenous contrast. COMPARISON: CT chest, abdomen and pelvis 11/25/2019 FINDINGS: Chest: There are trace bilateral pleural effusions and minimal bibasilar atelectasis. No focal consolidation. Normal heart size without pericardial effusion. Calcified atherosclerosis is noted in the coronary arteries. No focal liver lesion gallbladder is at the upper limit of normal for size. No evidence of bile duct dilatation. Spleen is at the upper limit of normal in size and contains punctate calcifications, likely old granulomatous disease. The pancreas, kidneys and right adrenal gland are normal. There is a tiny 3 mm left adrenal nodule which is too small to characterize. No hydronephrosis on either side. The urinary bladder is thick-walled and decompressed with a Toney catheter. The portal, splenic and superior mesenteric veins are patent. Abdominal aorta is normal in course and caliber and contains minimal calcified atherosclerosis. Retroperitoneal lymphadenopathy is noted, which appears improved compared to the prior study. For reference, the largest lymph node is an aortocaval lymph node measuring 1.4 cm in short axis, previously 1.9 cm. Mild bilateral inguinal and iliac chain lymphadenopathy also appears slightly improved. There are interval postsurgical changes of ventral abdominal hernia repair, abdominoperineal resection and end colostomy in the right lower quadrant. A total of 3 surgical drains are in place terminating in the right and left abdominal wall and left pelvis. There is a small amount of presacral fluid, fat stranding and soft tissue thickening measuring at most 3.0 cm at table position -913.5. Bone windows demonstrate moderate multilevel degenerative disc disease, worse at the L3-L4 level. There are no suspicious lytic or blastic lesions. IMPRESSION: 1. Interval postsurgical changes of abdominoperineal resection with an end colostomy in the right lower quadrant and repair of a ventral abdominal wall hernia. There is a small amount of fluid, fat stranding and soft tissue thickening in the presacral space measuring up to 3.0 cm which may represent a developing postsurgical collection, however at this time appears predominantly phlegmonous, with no significant organized fluid component. Dictated by: Oliverio Gilliam M.D. The radiology attending physician has personally reviewed this study, and had reviewed and/or edited this written report and agrees with it. Electronically signed by: Kadeem Erwin M.D. Bernie Scott NP IMG CT PROCEDURES Erlinda l Result from Last 3 Months or Most Recently Relevant to Health Maintenance Insurance [facility] [place] [address] [facility] MDCR HMO REF [facility] MEDICARE ADVANTAGE [place] [id number] Advance Directives For more information, please contact: [phone] Documents on File Type Date Recorded Patient Accounts Payable Analyst Expl anation ADVANCE DIRECTIVE 02/05/2020 5:05 AM POWER OF BED LABORER-FINANCIAL/MEDICA L ADVANCE DIRECTIVE 01/31/2020 1:59 PM * Full Code (Latest Code Status on File) Date Activated Date Inactivated Comments 01/03/2024 9:39 AM 01/04/2024 4:04 PM * Full Code Date Activated Date Inactivated Comments 01/01/2024 8:49 PM 01/03/2024 9:39 AM * Full Code Date Activated Date Inactivated Comments 01/24/2020 3:29 AM 02/04/2020 3:34 PM Healthcare Agents on File Name Relationship Healthcare Agent [facility] Communication Marvin Mouna [facility] Care Agent Care Teams Sueding And Buffing Machine Operator Relationship Specialty [place] [id number] [id number] PCP - General Internal Medicine 12/12/20 Marvin Riddle MD [address] [address] Referring Physician Surgery 11/30/17 [place] [address] [phone] Referring Physician Internal Medicine 11/20/19 [place] [address] [address] [facility] [id number] Truck Jumper Internal Medicine 11/20/19 [place] [address] [address] [id number] Consulting Physician General Surgery 11/20/19 [place] [address] [phone] Surgeon Colon and Rectal Surgery 11/20/19 [place] [address] [address] Assistant Operator Dermatology 07/14/20 Sea Parker MD [address] [address] Consulting Physician Gastroenterology 01/03/24 Ana Luisa Reed, GENA [address] [facility] [address] [place] [address] Nurse Practitioner Nurse Practitioner 01/04/24
--- OUTSIDE RECORDS SUMMARY | 2025-02-05 11:37 | XMS_ITS | Encounter Summary ---
Author Organization [facility] Healthcare Address [address] [place] [address] Care Team Providers Care Negative Stripper Name Role Phone Marvin Riddle MD Unavailable [phone] Angelita Smith MD Unavailable [phone] Dilma Moser MD Unavailable [phone] Pratibha Bailey MD Unavailable [phone] Tl Munoz MD Unavailable [phone] Unknown, Notinfile Primary Care Provider Unavail able Lino Valero MD Unavailable [phone] Angelita Smith MD Primary Care Provider [phone] Sea Parker MD Unavailable [phone] Ana Luisa Reed NP Unavailable [phone] Encounter Details Date Type Department Care Team (Late st Contact Info) Description 05/12/2020 Documentation [facility] Surgeon [address] [place] [address] Rocio Langston MD [address] [phone] [place], [place] [id number] Social History Tobacco Use Types Packs/Day Years Used Date Smoking Tobacco: Former Cigarettes 2 42 1 968 2009 Smokeless Tobacco: Never Alcohol Use Standard Drinks/Week Comments Yes 9 (1 standard drink = 0.6 oz pur e alcohol) 9 beers per day Social Connection and Isolation Panel Answer Date Recorded In a typical week, how many times do you talk on the phone with family, friends, or neighbors? Once a week 01/31/2020 How often do you get together with friends or re latives? Once a week 01/31/2020 How often do you attend rastafarian or jehovah's witness serv ices? Never 01/31/2020 Do you belong to any clubs o r organizations such as rastafarian groups, unions, fraternal or athletic groups, or school groups? No 01/31/2020 How often do you attend meet ings of the clubs or organizations you belong to? Never 01/31/2020 Marital Status Not on file 01/31/2020 Overall Financial Resource Strain (CARDIA) Answe r Date Recorded How hard is it for you to pa y for the very basics like food, housing, medical care, and heating? Not hard at all 01/24/2020 Hunger Vital Sign Answer Date Recorded Within the past 12 months, y ou worried that your food would run out before you got the money to buy more. Never true 01/24/20 20 Within the past 12 months, t he food you bought just didn't last and you didn't have money to get more. Never true 01/24/2020 PRAPARE - Transportation Answer Date Re corded In the past 12 months, has l ack of transportation kept you from medical appointments or from getting medications? No 01/04 In the past 12 months, has l ack of transportation kept you from meetings, work, or from getting things needed for daily living? 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 Not on file Not on file documented as of this encounter Plan of Treatment Not on file documented as of this encounter Visit Diagnoses Not on filedocumented in this encounter Care Teams Negative Stripper Relationship Specialty Start Date End Date Unknown, Notinfile PCP - General 01/16/20 12/11/20 [place] [address] [address] [address] PCP - General Internal Medicine 12/12/20 Marvin Riddle MD [address] [address] Referring Physician Surgery 11/30/17 [place] [address] [place] [id number] Referring Physician Internal Medicine 11/20/19 [place] [address] [place] [address] [id number] Jet Dyeing Machine Operator Internal Medicine 11/20/19 [place] [address] [place] [phone] Consulting Physician General Surgery 11/20/19 [place] [address] [place] [phone] Surgeon Colon and Rectal Surgery 11/20/19 Lino Valero MD Digester Capper Dermatology 07/14/20 Sea Parker MD [address] [address] Consulting Physician Gastroenterology 01/03/24 Ana Luisa Reed NP [address] [address] Nurse Practitioner Nurse Practitioner 01/04/24 documented as of this encounter
--- OUTSIDE RECORDS SUMMARY | 2025-02-05 11:37 | XMS_ITS | Encounter Summary ---
Author Organization [facility] Address [facility] [place] [address] Care Team Providers Care Sludge Filtration Operator Name Role Phone Angelita Smith MD Primary Care Provider [phone] Lucy Malik MD Primary Care Provider [phone] Ana Luisa Reed [facility] Primary Care Provider + Encounter Details Date Type Department Care Team (Late st Contact Info) Description 01/14/2021 MyChart Message Enc [facility] Medical Group Family & Internal Medicine [facility] [id number] [place] [phone] Angelita Smith [place] [id number] [place] [address] RE: Referral Request Social History Tobacco Use Types Packs/Day Years [...] on file Sexual Orientation Not on file COVID-19 Exposure Response Date Recorded In the last month, have you been in contact with someone who was confirmed or suspected to have Coronavirus / COVID-19? 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 [place] [address] PCP - General FAMILY PRACTICE 06/18/22 05/18/23 Ana Luisa Reed PSYCHOLOGICAL SCIENCE PROFESSOR- [address] [place] [address] [place] [address] PCP - General Nurse Practitioner Family 01/01/24 documented as of this encounter
--- OUTSIDE RECORDS SUMMARY | 2025-02-05 11:37 | XMS_ITS | Encounter Summary ---
Author Organization [facility] Address [address] [place] [address] Care Team Providers Care Data Migration Consultant Name Role Phone Lucy Malik MD Primary Care Provider [phone] Ana Luisa Reed [facility] Primary Care Provider + Encounter Details Date Type Department Care Team (Late st Contact Info) Description 09/30/2022 MyChart Message Enc [facility] Medical Group - [facility] [address] [place], [place] [address] [employer], [facility] Provider Air Quality Message Social History Tobacco Use Types Packs/Day Years [...] please move on to questions 3-9 0 12/09/2021 Sex and Gender Information Value Date Recorded Sex Assigned at Not on file Legal Sex Male 4:11 PM CDT Gender Identity Not on file Sexual Orientation Not on file documented as of this encounter Plan of Treatment Not on file documented as of this encounter Visit Diagnoses Not on filedocumented in this encounter Additional Health Concerns Assessment Noted Time PHQ-9 Depression Total Score: 1 12/10/19 22 1:44 PM CDT documented as of this encounter Care Teams Data Migration Consultant Relationship Specialty [place] [address] [facility] [place] [address] PCP - General FAMILY PRACTICE 06/18/22 05/18/23 Ana Luisa Reed, CENTRAL SUPPLY MANAGER- [address] [facility] [place] [address] PCP - General Nurse Practitioner Family 01/01/24 documented as of this encounter
--- OUTSIDE RECORDS SUMMARY | 2025-02-05 11:37 | XMS_ITS | Encounter Summary ---
Author Organization [facility] Address [facility] [place] [address] Care Team Providers Care Combat Systems Operator Name Role Phone Angelita Smith MD Primary Care Provider [phone] Angelita Smith MD Unavailable [phone] Lucy Malik MD Primary Care Provider [phone] Ana Luisa eRed [facility] Primary Care Provider + Encounter Details Date Type Department Care Team (Late st Contact Info) Description 07/26/2019 [employer] Message Enc [facility] Medical Group Family & Internal Medicine [facility] [id number] [place] [phone] Angelita Smith [place] [id number] [place] [address] RE: Question Social History Tobacco Use Types Packs/Day Years Used Date Smoking Tobacco: Former Cigarettes 2 31 0 10/03/1970 - 10/03/2001 Cigars Smokeless Tobacco: Never Comments:Patient smokes a ci gar q3-4 months Alcohol Use Standard Drinks/Week Comments Yes 0 (1 standard drink = 0.6 oz pur e alcohol) 12 pack of beer a day PHQ-2 Answer Date Recorded PHQ-2 Score 0 03/11/2019 Sex and Gender Information Value Date Recorded Sex Assigned at Not on file Legal Sex Male 4:11 PM CDT Gender Identity Not on file Sexual Orientation Not on file documented as of this encounter Plan of Treatment Not on file documented as of this encounter Visit Diagnoses Not on filedocumented in this encounter Care Teams Combat Systems Operator Relationship Specialty Start Date End Date Angelita Smith MD PCP - General INTERNAL MEDICINE 10/10/18 06/17/22 Angelita Smith MD PCP - Med Group - [facility] Attributed Provider 02/07/19 04/05/20 [place] [address] [facility] [address] [place] [address] PCP - General FAMILY PRACTICE 06/18/22 05/18/23 Ana Luisa Reed, [facility]- [address] [place] [place] [address] PCP - General Nurse Practitioner Family 01/01/24 documented as of this encounter
--- OUTSIDE RECORDS SUMMARY | 2025-02-05 11:37 | XMS_ITS | Encounter Summary ---
Author Organization [facility] Address [facility] [place] [address] Care Team Providers Care Elevator Adjuster Name Role Phone Angelita Smith MD Primary Care Provider [phone] Lucy Malik MD Primary Care Provider [phone] Ana Luisa Reed [facility] Primary Care Provider + Encounter Details Date Type Department Care Team (Late st Contact Info) Description 11/29/2020 [employer] Message Enc [facility] Medical Group Family & Internal Medicine [address] [phone] [facility] Provider RE:Infomation Social History Tobacco Use Types Packs/Day Years [...] have Coronavirus / COVID-19? No / Unsure 11/28/2020 8:53 AM CDT documented as of this encounter Plan of Treatment Not on file documented as of this encounter Visit Diagnoses Not on filedocumented in this encounter Additional Health Concerns Assessment Noted Time PHQ-9 Depression Total Score: 0 04/10/19 21 3:48 PM DIE EQUIPMENT OPERATOR documented as of this encounter Care Teams Elevator Adjuster Relationship Specialty Start Date End Date Angelita Smith MD PCP - General INTERNAL MEDICINE 10/10/18 06/17/22 [place] [address] [facility] [address] [place] [address] PCP - General FAMILY PRACTICE 06/18/22 05/18/23 Ana Luisa Reed FNP- [address] [place] [address] [place] [address] PCP - General Nurse Practitioner Family 01/01/24 documented as of this encounter
--- OUTSIDE RECORDS SUMMARY | 2025-02-05 11:37 | XMS_ITS | Encounter Summary ---
Author Organization [facility] Address [facility] [place] [address] Care Team Providers Care Automobile Body Repairer Helper Name Role Phone Angelita Smith MD Primary Care Provider [phone] Lucy Malik MD Primary Care Provider [phone] Ana Luisa Reed [facility] Primary Care Provider + Encounter Details Date Type Department Care Team (Late st Contact Info) Description 11/29/2020 MyChart Message Enc [facility] [address] [place] [address] [place] [address] [place], [place] [phone] RE: Follow Up/Update Social History Tobacco Use Types Packs/Day Years [...] Total Score: 0 04/10/19 21 3:48 PM 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
--- OUTSIDE RECORDS SUMMARY | 2025-02-05 11:37 | XMS_ITS | Encounter Summary ---
Author Organization [facility] Address [facility] [place] [address] Care Team Providers Care Human Services Assistant Name Role Phone Angelita Smith MD Primary Care Provider [phone] Lucy Malik MD Primary Care Provider [phone] Ana Luisa Reed [facility] Primary Care Provider + Encounter Details Date Type Department Care Team (Late st Contact Info) Description 10/27/2020 MyChart Message Enc [facility] Medical Group Family & Internal Medicine [facility] [address] [place] [phone] Angelita Smith [place] [phone] [place] [address] RE: Question Social History Tobacco Use [...] have Coronavirus / COVID-19? 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
--- OUTSIDE RECORDS SUMMARY | 2025-02-05 11:37 | XMS_ITS | Clinical Summary ---
Author Organization [facility] Address [address] [place] [address] Care Team Providers Care Digital Asset Manager Name Role Phone Ana Luisa Reed [facility] Primary Care Provider + Allergies No known active allergies Medications ascorbic acid 500 MG tablet Take 1,000 mg by mouth daily. Active vitamin B-12 100 MCG tablet Take 100 mcg by mouth daily. Active Cholecalciferol (VITAMIN D) 2000 units Tab Take 1 tablet by mouth daily. Active Potassium Iodide 32.5 (24 I) MG Tab Take 1 tablet by mouth daily. Active fexofenadine 180 MG tabletIndications:Jerry thurston, initial encounter Take 1 tablet (180 mg total) by mouth daily. 90 tablet 3 2 Active INCRUSE ELLIPTA 62.5 MCG/INH AEROSOL POWDER, BREATH ACTIVATED Inhale 1 puff into the lungs daily. 2 Active Cephalexin 500 MG TabIndications:Cellu litis of buttock Take 500 mg by mouth 3 (three) times daily. 30 tablet 3 2 Active atorvastatin (LIPITOR) 20 MG tablet 2 Active Naltrexone PowderIndications:Cr ohn's disease with other complication, unspecified gastrointestinal tract location ([facility] HHS/HCC),Hidradeniti s suppurativa Take 4.5 mg by mouth nightly. 0.405 g 3 Active albuterol sulfate HFA 108 (90 Base) MCG/ACT inhalerIndications:C OPD (chronic obstructive pulmonary disease) ([facility]) INHALE 2 PUFFS BY MOUTH EVERY 6 HOURS NEEDED FOR WHEEZING 18 g 2 4 Active Active Problems Problem Noted Date Diagnosed Date COPD (chronic obstructive pulmonary disease) 11/2018 Overview (10/10/2018): mild COPD Hidradenitis suppurativa 10/10/2018 Anemia 02/19/2017 Perforated bowel 02/18/[address] 02/10/2017 Splenomegaly Resolved Problems Problem Noted Date Diagnosed Date Resolved Date Perianal fistula 01/03/2019 12/12/2021 Lymphadenopathy 12/24/2017 10/02/2020 Delirium due to another medi alonzo condition, acute, hyperactive 02/23/2017 10/02/2020 DONNA (acute kidney injury) 02/19/2017 Immunizations Immunization Administration Dates Next Due Dtap (Generic) 06/05/2020,09/25/2019 Fluzone High Dose - >Age 65 (Prefilled Syringe) 07/16/2021(Deferred: Patient Refused - Patient has fear of needles.) Influenza Adult (Generic) 06/05/2020 MODERNA COVID-19 (12+) MRNA, LNP-S, PF, 100 MCG/ 0.5 ML DOSE 03/04/2021,08/28/2020,07/31/2020 MODERNA COVID-19 (BILINGUAL MEDICAL ASSISTANT MEREDITH TIMMY), MRNA, LNP-S, PF, 50 MCG/ 0.25 ML DOSE 10/22/2021 Pneumococcal(Ppv 23)Aka Pneumovax 07/16/2021(Def erred: Patient Refused) Pneumovax 06/05/2020 Td (Tenivac) preservative free 09/25/2019 Td, Adsorbed, Preservative F ree, Adult Use, Lf Unspecified 09/25/2019 Zoster (Zostavax) 323[address] Unt/0.65Ml 06/05/2020 Family History Medical History Relation Comments Depression Daughter 1 Early Daughter 1 Mental Health Daughter 1 Depression Father Early Father Hypertension Father Mental Health Father Miscarriages / Stillbirths Mother Kidney Disease Son status post kidn ey transplant Relation Status Comments Daughter 1 (Age 23) committed suic michael Daughter 2 Alive Daughter 3 Alive Father committed suicid e Mother Son Alive Social History Tobacco Use Types Packs/Day Years Used Date Smoking Tobacco: Former Cigarettes 2 31 0 10/03/1970 - 10/03/2001 Cigars Smokeless Tobacco: Never Tobacco Cessation:Counseling Given: No Comments:Patient smokes a cigar 3-4 in a year Alcohol Use Standard [...] Sign Reading Time Taken Comments Blood Pressure 140/77 01/01/2024 2:58 PM CDT Pulse 89 01/01/2024 2:58 PM CDT Temperature 31.7 C (89 F) 01/01/2024 2:58 PM CDT Respiratory Rate 18 01/01/2024 2:58 PM CDT Oxygen Saturation 97% 01/01/2024 2:58 PM CDT Inhaled Oxygen Concentration - - Weight 75.8 kg (167 lb) 01/01/2024 10:48 AM CDT Height 175.3 cm (5' 9) 01/01/2024 10:48 AM CDT Body Mass Index 24.66 01/01/2024 10:48 AM CDT Plan of Treatment Health Maintenance Due Date Last Done Comments RSV Immunization or 60+ Years (1 - Risk 60-74 years 1-dose series) 2012 Zoster Vaccines (2 of 3) 07/31/2020 06/05/2020 Annual Medicare Wellness Visit 04/11/2021 04/10/2020 Pneumococcal Vaccine: 50+ Years (2 of 2 - PCV) 06/05/2021 06/05/2020 PHQ-2 (Physician [place]) 04/05/2024 COVID-19 Vaccine ( - season) 2024 10/22/2021, 03/04/2021, 08/28/2020, Additional history exists Influenza Adult (#1) 2025 06/05/2020 Colorectal Cancer Screening Colonoscopy (10 Years) 06/01/2028 06/01/2018 DTaP, Tdap and Td Vaccines (5 - Tdap) 06/05/2030 06/05/2020, 09/25/2019, 09/25/2019, Additional history exists Hepatitis C Completed 02/09/2019 Hepatitis A Vaccines Aged Out No long er eligible based on patient's age to complete this topic Meningococcal B Vaccine Aged Out No l onger eligible based on patient's age to complete this topic Meningococcal Vaccine Aged Out No geoffrey enmanuel eligible based on patient's age to complete this topic RSV Immunizations Under 20 Months Aged Out No longer eligible based on patient's age to complete this topic Procedures Procedure Name Priority Date/Time Associated Diagnosis Comments COLONOSCOPY GENERIC (SCAN ORDER) Routine 06/01/2018 from Last 3 Months or Most Recently Relevant to Health Maintenance Results * COLONOSCOPY (06/01/2018) us Documents Scanned SCANNING Final Result from Last 3 Months or Most Recently Relevant to Health Maintenance Insurance Advance Directives Documents on File Type Date Recorded Patient Yard Cleaner Expl anation Advance Directives and Livin g Will 04/10/2020 2:59 PM * Full Code (Latest Code Status on File) Date Activated Date Inactivated Comments 03/04/2017 10:56 PM 03/08/2017 7:35 PM * Full Code Date Activated Date Inactivated Comments 02/28/2017 12:09 PM 03/04/2017 10:56 PM * Full Code Date Activated Date Inactivated Comments 02/17/2017 9:00 PM 02/28/2017 12:09 PM Care Teams Digital Asset Manager Relationship Specialty Start Date End Date Ana Luisa Reed, [employer]- [address] [place] [address] PCP - General Nurse Practitioner Family 01/01/24
--- OUTSIDE RECORDS SUMMARY | 2025-02-05 11:37 | XMS_ITS | Encounter Summary ---
Author Organization [facility] Address [facility] [place] [address] Care Team Providers Care Help Desk Administrator Name Role Phone Angelita Smith MD Primary Care Provider [phone] Lucy Malik MD Primary Care Provider [phone] Ana Luisa Reed [facility] Primary Care Provider + Encounter Details Date Type Department Care Team (Late st Contact Info) Description 11/05/2020 MyChart Message Enc [facility] Medical Group Family & Internal Medicine [facility] [address] [place] [phone] Angelita Smith [place] [id number] [place] [phone] RE: Question Social History Tobacco Use [...] Progress Notes * Jaqueline Monreal RN - 11/05/2020 1:27 PM CDT Printed to discuss with provider documented in this encounter Plan of Treatment Not on file documented as of this encounter Visit Diagnoses Not on filedocumented in this encounter Additional Health Concerns Assessment Noted Time PHQ-9 Depression Total Score: 0 04/10/19 21 3:48 PM 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 [place] [phone] PCP - General FAMILY PRACTICE 06/18/22 05/18/23 Ana Luisa Reed INSPECTOR FLOOR SUB ASSEMBLY- [address] [place], [place] [phone] PCP - General Nurse Practitioner Family 01/01/24 documented as of this encounter
--- OUTSIDE RECORDS SUMMARY | 2025-02-05 11:37 | XMS_ITS | Encounter Summary ---
Author Organization [facility] Address [facility] [place] [address] Care Team Providers Care Coordinator Of Health Services Name Role Phone Lucy Malik MD Primary Care Provider [phone] Ana Luisa Reed [facility] Primary Care Provider + Encounter Details Date Type Department Care Team (Late st Contact Info) Description 06/18/2022 [employer] Message Enc [facility] Medical Group Family & Internal Medicine [facility] [address] [place] [phone] Lucy Malik MD [address] [place] [address]. [address] [place] [address] Aortic aneurysm question Social History Tobacco Use Types Packs/Day Years [...] documented as of this encounter Care Teams Coordinator Of Health Services Relationship Specialty [place] [address] [facility] [address] [place] [address] PCP - General FAMILY PRACTICE 06/18/22 05/18/23 Ana Luisa Reed, [facility]- [address] [facility] [place] [address] PCP - General Nurse Practitioner Family 01/01/24 documented as of this encounter
--- OUTSIDE RECORDS SUMMARY | 2025-02-05 11:37 | XMS_ITS | Encounter Summary ---
Author Organization [facility] Address [address] [place] [address] Care Team Providers Care Folder And Notcher Name Role Phone Marvin Riddle MD Unavailable [phone] Angelita Smith MD Unavailable [phone] Dilma Moser MD Unavailable [phone] Pratibha Bailey MD Unavailable [phone] Tl Munoz MD Unavailable [phone] Unknown, Notinfile Primary Care Provider Unavail able Lino Valero MD Unavailable [phone] Angelita Smith MD Primary Care Provider [phone] Sea Parker MD Unavailable [phone] Ana Luisa Reed NP Unavailable [phone] Encounter Details Date Type Department Care Team (Late st Contact Info) Description 02/03/[address] [facility] Surgeon [address] [place] [address] Ronald Gibbs MD [address] [facility] [address] [place] [address] Social History Tobacco Use Types Packs/Day Years [...] week 01/31/2020 How often do you attend synagogue or jew serv ices? 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 Not on file Not on file Not on file documented as of this encounter Plan of Treatment Not on file documented as of this encounter Visit Diagnoses Not on filedocumented in this encounter Care Teams Folder And Notcher Relationship Specialty Start Date End Date Unknown, Notinfile PCP - General 01/16/20 12/11/20 [place] [address] [address] [address] PCP - General Internal Medicine 12/12/20 Marvin Riddle MD [address] [address] Referring Physician Surgery 11/30/17 [place] [address] [place] [address] Referring Physician Internal Medicine 11/20/19 [place] [address] [place] [phone] Telecom Network Manager Internal Medicine 11/20/19 [place] [address] [place] [address] [phone] Consulting Physician General Surgery 11/20/19 [place] [address] [place] [address] Surgeon Colon and Rectal Surgery 11/20/19 Lino Valero MD Inbound Call Center Agent Dermatology 07/14/20 Sea Parker MD [address] [address] Consulting Physician Gastroenterology 01/03/24 Ana Luisa Reed NP [address] [facility] [address] [place] [address] Nurse Practitioner Nurse Practitioner 01/04/24 documented as of this encounter
== END 2025-02-05 10:28 | disposition home or self-care (01) ==
PROVIDERS: PCP Internal Medicine; Visit Provider Nurse Practitioner Family
DX: R91.8 Other nonspecific abnormal finding of lung field (principal)
CPT/HCPCS: 71250

== ENCOUNTER 2025-02-23 10:19 | Outpatient (CLI) | payer MEDICARE, SELFPAY ==
--- OUTSIDE RECORDS SUMMARY | 2024-01-03 08:30 | XMS_ITS ---
Author Organization [facility] Address [address] [place] [address] Care Team Providers Care Grass Farm Laborer Name Role Phone Angelita Smith MD Primary Care Provider Unavail teena BAUMAN MD, JARON Unavailable REASON FOR VISIT ERCP INPT Encounters Encounter Location Date Provider Diagnosis [facility] - Op [address] GI Scheduling [place], [place] [id number] 01/03/2024 JARONTK BAUMAN Plan Of Treatment No Information Progress Notes * VANESSAARGENIS Reyes ADOB: (74 yo M)Acc No.[id number]:01/03/2024 Patient: Reyes DAVILA Provider: Charleen Bauman MD, FASGE :1950 A ge:73 Y S ex:Male Date:01/03/2024 Address:[address], [facility] Pcp:Angelita Smith MD * * Electronic signature of CONSTANCE BAUMAN MD, MD on 02/23/2025 at 11:24 AM EST Sign off status: Pending * Provider: Charleen Bauman MD, FASGE Date: 0 01/03/2024 Generated for Printi ng/Faxing/eTransmitting on: 1 04/25/2024 11:24 AM EST
--- OUTSIDE RECORDS SUMMARY | 2024-01-31 08:00 | XMS_ITS ---
Author Organization [facility] Address [address] [place] [address] Care Team Providers Care Operations Systems Specialist Name Role Phone Luis ORDONEZ, Angelita Primary Care Provider Unavail teena BAUMAN MD, JARON Unavailable REASON FOR VISIT ERCP w/stent pull/No Auth Req* Encounters Encounter Location Date Provider Diagnosis [facility] - Op [address] GI Scheduling [place], [place] [id number] 01/31/2024 JARON MITUL Plan Of Treatment No Information Progress Notes * DELANEY Reyes ADOB: (74 yo M)Acc No.[id number]:01/31/2024 Patient: Reyes DAVILA Provider: Charleen Bauman MD, FASGE :1950 A ge:73 Y S ex:Male Date:01/31/2024 Address:[facility] [address], [facility] [id number] Pcp:Angelita Smith MD * * Electronic signature of CONSTANCE BAUMAN MD, MD on 02/23/2025 at 11:24 AM EST Sign off status: Pending * Provider: Charleen Bauman MD, FASGE Date: Generated for Printi ng/Faxing/eTransmitting on: 04/25/2024 11:24 AM EST
--- OUTSIDE RECORDS SUMMARY | 2025-02-23 10:24 | XMS_ITS | Encounter Summary ---
Author Organization [facility] Address [facility] [place] [address] Care Team Providers Care Case Consultant Name Role Phone Angelita Smith MD Primary Care Provider [phone] Lucy Malik MD Primary Care Provider [phone] Ana Luisa Reed [facility] Primary Care Provider + Encounter Details Date Type Department Care Team (Late st Contact Info) Description 11/05/2020 MyChart Message Enc [facility] Medical Group Family & Internal Medicine [facility] [address] [place] [phone] Angelita Smith [place] [address] [place] [address] RE: Question Social History Tobacco Use [...] Total Score: 0 04/10/19 21 3:48 PM COMPUTER TERMINAL 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 [address] [place] [phone] PCP - General FAMILY PRACTICE 06/18/22 05/18/23 Ana Luisa Reed CONTINUITY EDITOR- [address] [place], [place] [phone] PCP - General Nurse Practitioner Family 01/01/24 documented as of this encounter
--- OUTSIDE RECORDS SUMMARY | 2025-02-23 10:24 | XMS_ITS | Encounter Summary ---
Author Organization [facility] Address [facility] [place] [address] Care Team Providers Care Septic Tank Setter Name Role Phone Angelita Smith MD Primary Care Provider [phone] Lucy Malik MD Primary Care Provider [phone] Ana Luisa Reed [facility] Primary Care Provider + Encounter Details Date Type Department Care Team (Late st Contact Info) Description 11/29/2020 [email or web address] Message Enc [facility] Medical Group Family & Internal Medicine [address] [phone] [facility] Provider RE:Infomation Social History Tobacco Use Types [...] Total Score: 0 04/10/19 21 3:48 PM SERVICE DEPARTMENT MANAGER documented as of this encounter Care Teams Septic Tank Setter Relationship Specialty Start Date End Date Angelita Smith MD PCP - General INTERNAL MEDICINE 10/10/18 06/17/22 [place] [address] [facility] [address] [place] [address] PCP - General FAMILY PRACTICE 06/18/22 05/18/23 Ana Luisa Reed FNP- [address] [place] [address] PCP - General Nurse Practitioner Family 01/01/24 documented as of this encounter
--- OUTSIDE RECORDS SUMMARY | 2025-02-23 10:24 | XMS_ITS | Encounter Summary ---
Author Organization [facility] Address [facility] [place] [address] Care Team Providers Care Real Estate Services Administrator Name Role Phone Angelita Smith MD Primary Care Provider [phone] Lucy Malik MD Primary Care Provider [phone] Ana Luisa Reed [facility] Primary Care Provider + Encounter Details Date Type Department Care Team (Late st Contact Info) Description 11/29/2020 MyChart Message Enc [facility] [address] [place] [address] [place] [address] [place], [place] [phone] RE: Follow Up/Update Social History Tobacco Use [...] Total Score: 0 04/10/19 21 3:48 PM TRUCK 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
--- OUTSIDE RECORDS SUMMARY | 2025-02-23 10:24 | XMS_ITS | Patient Health Record ---
Author Organization [facility] Address [address] [place] [address] Care Team Providers Care Training Professional Name Role Phone Luis ORDONEZ, Angelita Primary Care Provider Unavail able MITUL ORDONEZ, JARON Unavailable Reason For Referral No Information Plan Of Treatment Pending Test Test Name Order Date Endoscopic Retrograde Cholangiopancreato graphy (ERCP) 01/13/2024 Insurance Providers Payer Name Payer Address Payer Phone Subscriber Number Group Number Insured Name Patient Relationship to Insured Coverage Start Date Coverage End Date AARP-Medic are Complete [address] [address] [place] [address] [phone] [id number] Reyes Womack Self - patient is the insured
--- OUTSIDE RECORDS SUMMARY | 2025-02-23 10:24 | XMS_ITS | Encounter Summary ---
Author Organization [facility] Address [facility] [place] [address] Care Team Providers Care Manager Branch Name Role Phone Lucy Malik MD Primary Care Provider [phone] Ana Luisa Reed [facility] Primary Care Provider + Encounter Details Date Type Department Care Team (Late st Contact Info) Description 06/18/2022 [employer] Servicest Message Enc [facility] Medical Group [facility] [address] [place] [phone] Lucy Malik MD [address] [place] [address]. [address] [place] [address] Aortic aneurysm question Social History Tobacco [...] documented as of this encounter Care Teams Manager Branch Relationship Specialty [place] [address] [facility] [address] [place] [address] PCP - General FAMILY PRACTICE 06/18/22 05/18/23 Ana Luisa Reed, [facility]- [address] [facility] [place] [address] PCP - General Nurse Practitioner Family 01/01/24 documented as of this encounter
--- OUTSIDE RECORDS SUMMARY | 2025-02-23 10:24 | XMS_ITS | Encounter Summary ---
Author Organization [facility] Address [facility] [place] [address] Care Team Providers Care Interior Design Coordinator Name Role Phone Angelita Smith MD Primary Care Provider [phone] Lucy Malik MD Primary Care Provider [phone] Ana Luisa Reed [facility] Primary Care Provider + Encounter Details Date Type Department Care Team (Late st Contact Info) Description 01/14/2021 MyChart Message Enc [facility] Medical Group Family & Internal Medicine [facility] [address] [place] [phone] [place] [address] [place] [address] RE: Referral Request Social History Tobacco [...] Total Score: 0 04/10/19 21 3:48 PM ZIPPER SETTER CHAINSTITCH documented as of this encounter Care Teams Interior Design Coordinator Relationship Specialty Start Date End Date Angelita Smith MD PCP - General INTERNAL MEDICINE 10/10/18 06/17/22 [place] [address] [facility] [place] [facility] [place] [address] PCP - General FAMILY PRACTICE 06/18/22 05/18/23 Ana Luisa Reed PROGRAMMING INTERN- [address] [place] [address] PCP - General Nurse Practitioner Family 01/01/24 documented as of this encounter
--- OUTSIDE RECORDS SUMMARY | 2025-02-23 10:24 | XMS_ITS | Encounter Summary ---
Author Organization [facility] Address [address] [place] [address] Care Team Providers Care Candles Pourer Name Role Phone Lucy Malik MD Primary Care Provider [phone] Ana Luisa Reed [facility] Primary Care Provider + Encounter Details Date Type Department Care Team (Late st Contact Info) Description 09/30/2022 MyChart Message Enc [facility] Medical Group - [facility] [address] [place], [place] [address] [place] [facility] Provider Air Quality Message Social History Tobacco [...] documented as of this encounter Care Teams Candles Pourer Relationship Specialty [place] [address] [facility]. [address] [place] [address] PCP - General FAMILY PRACTICE 06/18/22 05/18/23 Ana Luisa Reed, COMBINATION OPERATOR- [address] [facility] [place] [address] PCP - General Nurse Practitioner Family 01/01/24 documented as of this encounter
--- OUTSIDE RECORDS SUMMARY | 2025-02-23 10:24 | XMS_ITS | Encounter Summary ---
Author Organization [facility] Address [facility] [place] [address] Care Team Providers Care Environmental Manager Name Role Phone Angelita Smith MD Primary Care Provider [phone] Angelita Smith MD Unavailable [phone] Lucy Malik MD Primary Care Provider [phone] Ana Luisa Reed [facility] Primary Care Provider + Encounter Details Date Type Department Care Team (Late st Contact Info) Description 07/26/2019 MyCBlackLine Systemst Message Enc [facility] Medical Group Family & Internal Medicine [facility] [address] [place] [phone] Angel[place] [address] [place] [address] RE: Question Social History Tobacco Use [...] on filedocumented in this encounter Care Teams Environmental Manager Relationship Specialty Start Date End Date Angelita Smith MD PCP - General INTERNAL MEDICINE 10/10/18 06/17/22 Angelita Smith MD PCP - Med Group - [facility] Attributed Provider 02/07/19 04/05/20 [place] [address] [place] [address] PCP - General FAMILY PRACTICE 06/18/22 05/18/23 Ana Luisa Reed, [facility]- [address] [place] [address] PCP - General Nurse Practitioner Family 01/01/24 documented as of this encounter
--- OUTSIDE RECORDS SUMMARY | 2025-02-23 10:24 | XMS_ITS | Clinical Summary ---
Author Organization [facility] Address [address] [place] [address] Care Team Providers Care Patient Safety Tech Name Role Phone Ana Luisa Reed [facility] Primary Care Provider + Allergies No known [...] with other complication, unspecified gastrointestinal tract location ([facility] HHS/HCC),Hidradeniti s suppurativa Take 4.5 mg by mouth nightly. 0.405 g 3 Active albuterol sulfate HFA 108 (90 Base) MCG/ACT inhalerIndications:C OPD (chronic obstructive pulmonary disease) ([facility]) INHALE 2 PUFFS BY MOUTH EVERY 6 [...] MCG/ 0.5 ML DOSE 03/04/2021,08/28/2020,07/31/2020 MODERNA COVID-19 (FOREIGN LANGUAGE INTERPRETER MEREDITH TIMMY), MRNA, LNP-S, PF, 50 MCG/ 0.25 ML DOSE 10/22/2021 Pneumococcal(Ppv 23)Aka Pneumovax 07/16/2021(Def erred: Patient Refused) Pneumovax 06/05/2020 Td (Tenivac) preservative free 09/25/2019 Td, Adsorbed, Preservative F ree, Adult Use, Lf Unspecified 09/25/2019 Zoster (Zostavax) [address] Unt/0.65Ml 06/05/2020 Family History Medical History Relation [...] 2 - PCV) 06/05/2021 06/05/2020 PHQ-2 (Physician [place]) 04/05/2024 COVID-19 Vaccine ( - season) 2024 [...] Documents on File Type Date Recorded Patient Podiatry Teacher Expl anation Advance Directives and Livin g Will 04/10/2020 2:59 PM * Full Code (Latest Code Status on File) Date Activated Date Inactivated Comments 03/04/2017 10:56 PM 03/08/2017 7:35 PM * Full Code Date Activated Date Inactivated Comments 02/28/2017 12:09 PM 03/04/2017 10:56 PM * Full Code Date Activated Date Inactivated Comments 02/17/2017 9:00 PM 02/28/2017 12:09 PM Care Teams Patient Safety Tech Relationship Specialty Start Date End Date Ana Luisa Reed, [employer]- [address] [place] [address] PCP - General Nurse Practitioner Family 01/01/24
--- OUTSIDE RECORDS SUMMARY | 2025-02-23 10:24 | XMS_ITS | Clinical Summary ---
Author Organization [employer] Address [address] [place] [address] Care Team Providers Care Shelving Supervisor Name Role Phone Angelita Smith MD Primary Care Provider [phone] Source Comments [facility] [employer],non-owned Affiliates and Associated Physician Practices is amultiple site organization consisting of ambulatory clinics and hospital sitesin [place], [place], [place] and [place]. This disclosure is being madepursuant to the Care Everywhere program and may not contain all information available regarding this patient. Last updated 17[employer] Allergies No known active allergies Medications * [...] on file Legal Sex Male 6:08 AM FORENSIC TECHNICIAN Gender Identity Not on file Sexual Orientation Not on file Last Filed Vital Signs Vital Sign Reading Time Taken Comments Blood Pressure 163/101 03/07/2019 3:12 PM FORENSIC TECHNICIAN Pulse 98 03/07/2019 3:12 PM FORENSIC TECHNICIAN Temperature 36.3 C (97.3 F) 03/07/2019 2:42 PM FORENSIC TECHNICIAN Respiratory Rate 13 03/07/2019 3:12 PM FORENSIC TECHNICIAN Oxygen Saturation 99% 03/07/2019 3:12 PM FORENSIC TECHNICIAN Inhaled Oxygen Concentration - - Weight 83.9 kg (185 lb) 03/07/2019 12:56 PM FORENSIC TECHNICIAN Height 175.3 cm (5' 9) 03/07/2019 12:56 PM FORENSIC TECHNICIAN Body Mass Index 27.32 03/07/2019 12:56 PM FORENSIC TECHNICIAN Plan of Treatment Health Maintenance Due Date [...] ENDOSCOPY, COLON, DIAGNOSTIC Routine 03/07/2019 1:28 PM FORENSIC TECHNICIAN COMPREHENSIVE METABOLIC PANEL Routine 02/09/2019 12:19 PM FORENSIC TECHNICIAN Perianal abscess HEPATITIS C ANTIBODY Routine 02/09/2019 12:19 PM FORENSIC TECHNICIAN Need for hepatitis C screening test from Last 3 Months or Most Recently Relevant to Health Maintenance Results * ENDOSCOPY, COLON, DIAGNOSTIC (03/07/2019 1:28 PM FORENSIC TECHNICIAN) Report Endoscopy POC Endoscopy Department Report __ [...] congested, erythematous, friable (with contact bleeding) and ehipkrsg-ilgakrq-nt creased mucosa was found in the rectum [...] erythematous, mildly friable (with contact bleeding), inflamed, lptfrnvk-rhtioiv-ri creased mucosa in the rectum. Biopsied. - [...] for Hidradenitis Procedure Code(s): --- Professional --- 01200, Colonoscopy, flexible; with removal of tumor(s), polyp(s), or other lesion(s) by snare technique 29852, 59, Colonoscopy, flexible; with biopsy, single or [...] colon with intestinal obstruction CPT copyright 2016 [employer] [place] [employer]. All rights reserved. The codes documented in this report are preliminary and upon curtain roller assembler review may be revised to meet current compliance requirements. ___ Dilma Moser MD 03/07/2019 3:51:57 PM Note Initiated On: 03/07/2019 1:28 PM Number of Addenda: 0 [facility] [address] [facility] [place] [address] [facility] 03/07/2019 1:28 PM FORENSIC TECHNICIAN us Zee Parra MD GI PROCEDURE ORDERABLES Edited Result - Final OMER GUTIERREZ * (ABNORMAL) COMPREHENSIVE METABOLIC PANEL (02/09/2019 12:19 PM FORENSIC TECHNICIAN) Glucose 104(H) 65 - 99 mg/dL [facility] [...] BLOOD SPECIMEN / Unknown 02/09/2019 12:19 PM FORENSIC TECHNICIAN 02/09/2019 Narrative Resulting Agency Comment Lab Testing performed at: [facility] [address] [facility] [id number] Dilma Moser MD LAB - CHEMISTRY ORDERABLES Final Result [facility] INSURANCE BILL [address] [place] [address] * HEPATITIS C ANTIBODY (02/09/2019 12:19 PM FORENSIC TECHNICIAN) Hepatitis C Antibody <0.1 0.0 - 0.9 s/co ratio [facility] INSURANCE BILL Comment: Negative: < 0.8 Indeterminate: 0.8 - 0.9 Positive: > 0.9 . The CDC recommends that a positive HCV antibody result be followed up with a HCV Nucleic Acid Amplification test (000141). FASTING Blood BLOOD SPECIMEN / Unknown 02/09/2019 12:19 PM FORENSIC TECHNICIAN 02/09/2019 Narrative Resulting Agency Comment [facility] [address] [facility] [id number] Dilma Moser MD LAB - CHEMISTRY ORDERABLES Final Result [facility] INSURANCE BILL [address] [place] [address] from Last 3 Months or Most Recently Relevant to Health Maintenance Insurance [facility] MA[facility]GED MEDICARE ADV [facility]IC[facility] ADV Care Teams Shelving Supervisor Relationship Specialty Start Date End Date Angelita Smith MD PCP - General Internal Medicine 01/20/19
--- OUTSIDE RECORDS SUMMARY | 2025-02-23 10:24 | XMS_ITS | Encounter Summary ---
Author Organization [facility] Address [facility] [place] [address] Care Team Providers Care Manager Drilling Name Role Phone Angelita Smith MD Primary Care Provider [phone] Lucy Malik MD Primary Care Provider [phone] Ana Luisa Reed [facility] Primary Care Provider + Encounter Details Date Type Department Care Team (Latest Contact Info) Description 05/09/2021 MyChart Message Enc [facility] Medical Group Family & Internal Medicine [facility] [address] [place] [phone] Angelita Smith [place] [address] [place] [address] Reyes Helton, Family Service Counselor at [facility] Social History Tobacco Use Types Packs/Day [...] Total Score: 0 04/10/19 21 3:48 PM TEXTILE CONVERSION MANAGER documented as of this encounter Care Teams Manager Drilling Relationship Specialty Start Date End Date Angelita Smith MD PCP - General INTERNAL MEDICINE 10/10/18 06/17/22 [place] [address] [facility] [address] [place] [address] PCP - General FAMILY PRACTICE 06/18/22 05/18/23 Ana Luisa Reed, DRUG ENFORCEMENT AGENT- [address] [place] [address] PCP - General Nurse Practitioner Family 01/01/24 documented as of this encounter
--- OUTSIDE RECORDS SUMMARY | 2025-02-23 10:24 | XMS_ITS | Encounter Summary ---
Author Organization [facility] Address [facility] [place] [address] Care Team Providers Care Certified Paralegal Name Role Phone Angelita Smith MD Primary Care Provider [phone] Lucy Malik MD Primary Care Provider [phone] Ana Luisa Reed [facility] Primary Care Provider + Encounter Details Date Type Department Care Team (Late st Contact Info) Description 03/11/2021 MyChart Message Enc [facility] Medical Group Family & Internal Medicine [facility] [address] [place] [phone] Angelita Smith [place] [address] [place] [address] My non-healing surgical wound Social History [...] CST Printed to discuss with Dr. Goldstein DING AND CONSTRUCTION MANAGER documented in this encounter Plan of Treatment Not on file documented as of this encounter Visit Diagnoses Not on filedocumented in this encounter Additional Health Concerns Assessment Noted Time PHQ-9 Depression Total Score: 0 04/10/19 21 3:48 PM BUILDING AND CONSTRUCTION MANAGER documented as of this encounter Care Teams Certified Paralegal Relationship Specialty Start Date End Date Angelita Smith MD PCP - General INTERNAL MEDICINE 10/10/18 06/17/22 [place] [address] [facility] [address] [place] [address] PCP - General FAMILY PRACTICE 06/18/22 05/18/23 Ana Luisa Reed MEDIA EXECUTIVE- [address] [facility] [place] [address] PCP - General Nurse Practitioner Family 01/01/24 documented as of this encounter
--- OUTSIDE RECORDS SUMMARY | 2025-02-23 10:24 | XMS_ITS | Encounter Summary ---
Author Organization [facility] Address [facility] [place] [address] Care Team Providers Care Support Services Coordinator Name Role Phone Angelita Smith MD Primary Care Provider [phone] Lucy Malik MD Primary Care Provider [phone] Ana Luisa Reed [facility] Primary Care Provider + Encounter Details Date Type Department Care Team (Late st Contact Info) Description 10/27/2020 MyChart Message Enc [facility] Medical Group Family & Internal Medicine [facility] [address] [place] [phone] Angelita Smith [place] [address] [place] [address] RE: Question Social History Tobacco Use [...] Total Score: 0 04/10/19 21 3:48 PM PIZZA MAKER documented as of this encounter Care Teams Support Services Coordinator Relationship Specialty Start Date End Date Angelita Smith MD PCP - General INTERNAL MEDICINE 10/10/18 06/17/22 [place] [address] [facility] [address] [place] [address] PCP - General FAMILY PRACTICE 06/18/22 05/18/23 Ana Luisa Reed, B2B SALES PROFESSIONAL- [address] [place], [place] [address] PCP - General Nurse Practitioner Family 01/01/24 documented as of this encounter
--- OUTSIDE RECORDS SUMMARY | 2025-02-23 10:24 | XMS_ITS | Clinical Summary ---
Author Organization [facility] Address [address] [place] [address] Care Team Providers Care Crankshaft Grinder Name Role Phone Marvin Riddle MD Unavailable [phone] Angelita Smith MD Unavailable [phone] Dilma Moser MD Unavailable [phone] Pratibha Bailey MD Unavailable [phone] Tl Munoz MD Unavailable [phone] Lino Valero MD Unavailable [phone] Angelita Smith MD Primary Care Provider [phone] Sea Parker MD Unavailable [phone] Ana Luisa Reed NP Unavailable [phone] Allergies No known active allergies Medications cholecalciferol [...] mild per 2019 CT , released from [facility] in 2018 Chronic bronchitis (HCC) 04/25 [...] pur e alcohol) 9 beers per day [facility] Utilities Answer Date Recorded In the past 12 months has e [employer], gas, oil, or water [employer] threatened to shut off services in your [...] week 01/03/2024 How often do you attend [facility] or [facility] services? Never 01/03/2024 Do you belong to any clubs o r organizations such as mu-ism groups, unions, fraternal or athletic groups, or [...] any time in the past 12 m [facility], were you homeless or living in a penitentiary (including now)? No 01/03/2024 Personal Safety Answer Date Recorded Have you ever been in or are you currently in a harmful physical or emotional relationship or is someone making you feel afraid or unsafe? 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 Not on file Not [...] history exists Medical Devices Implanted Type Area Transportation Design Engineer Device Identifier Shelf Expiration Date Model / Serial / Lot [employer]/C R Bard [id number] Phasix [id number] Monofilament Scaffold Full Resorbable Square Mesh - Sna - [id number] Implanted:Qty: 1 on 01/23/2020 by Pratibha Bailey MD at [facility] Mesh N/A: Abdomen [employer]/C R Bard [id number] 12/31/2020 [id number] / [id number] / [id number] Explanted Type Area Transportation Design Engineer Device Identifier Shelf Expiration Date Model / Serial / Lot [employer] Mcgowan Flexi-Stent 4fr 2cm Small Pigtail Straight Flexible .025 [id number] - [id number] Explanted:Qty: 1 on 01/03/2024 at [facility] N/A: Pancreas [employer] 07/04/2028 [id number] / / [id number] [employer] Cotton-Owens 8.5fr 7cm Taper Tip Guidewire Proximal Distal Flap [id number] - [id number] Implanted:Qty: 1 on 01/03/2024 by Sea Parker MD at [facility] Explanted:Qty: 1 on 01/31/2024 by Sea Parker MD at [facility] N/A: Bile Duct [employer] 06/30/2026 [id number] / / [id number] Procedures Procedure Name Priority Date/Time Associated Diagnosis [...] Most Recently Relevant to Health Maintenance Insurance [facility] MEDICARE ADVANTAGE [facility] MDCR HMO REF [facility] MEDICARE ADVANTAGE [place] [id number] Advance Directives For more information, please contact: [phone] Documents on File Type Date Recorded Patient Culinary Instructor Expl anation ADVANCE DIRECTIVE 02/05/2020 5:05 AM POWER OF AIRPORT OPERATIONS SUPERVISOR-FINANCIAL/MEDICA L ADVANCE DIRECTIVE 01/31/2020 1:59 PM * Full Code (Latest Code Status on File) Date Activated Date Inactivated Comments 01/03/2024 9:39 AM 01/04/2024 4:04 PM * Full Code Date Activated Date Inactivated Comments 01/01/2024 8:49 PM 01/03/2024 9:39 AM * Full Code Date Activated Date Inactivated Comments 01/24/2020 3:29 AM 02/04/2020 3:34 PM Healthcare Agents on File Name Relationship Healthcare Agent [facility] Communication Marvin Mouna [facility] Health Care Agent Care Teams Crankshaft Grinder Relationship Specialty [place] [address] [address] [id number] PCP - General Internal Medicine 12/12/20 Marvin Riddle MD [address] [address] Referring Physician Surgery 11/30/17 [place] [address] [phone] Referring Physician Internal Medicine 11/20/19 [place] [address] [id number] Gas Adjuster Internal Medicine 11/20/19 [place] [address] [phone] Consulting Physician General Surgery 11/20/19 [place] [address] [id number] Surgeon Colon and Rectal Surgery 11/20/19 [place] [address] [address] Ophthalmic Photographer Dermatology 07/14/20 Sea Parker MD [address] [address] Consulting Physician Gastroenterology 01/03/24 Ana Luisa Reed, GENA [address] [facility] [address] [place] [address] Nurse Practitioner Nurse Practitioner 01/04/24
--- OUTSIDE RECORDS SUMMARY | 2025-02-23 10:25 | XMS_ITS | Encounter Summary ---
Author Organization [facility] Healthcare Address [address] [place] [address] Care Team Providers Care Smoke Control Supervisor Name Role Phone Marvin Riddle MD Unavailable [phone] Angelita Smith MD Unavailable [phone] Dilma Moser MD Unavailable [phone] Pratibha Bailey MD Unavailable [phone] Tl Munoz MD Unavailable [phone] Unknown, Notinfile Primary Care Provider Unavail able Lino Valero MD Unavailable [phone] Angelita Smith MD Primary Care Provider [phone] Sea Parker MD Unavailable [phone] Ana Luisa Reed NP Unavailable [phone] Encounter Details Date Type Department Care Team (Late st Contact Info) Description 02/03/2020 Telephone [facility] Surgeon [address] [place] [address] Ronald Gibbs MD [address] [facility] [address] [place] [address] Social History Tobacco Use Types Packs/Day Years [...] week 01/31/2020 How often do you attend catholic or sikhism serv ices? 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 Not on file Not on file documented as of this encounter Functional Status * Question Answer Date of Assessment Author BP Location Left arm 02/04/2020 8:30 AM ACCESS SERVICE REPRESENTATIVE Allison Quinn RN BP Method Automatic 02/04/2020 8:30 AM ACCESS SERVICE REPRESENTATIVE Allison Quinn RN MAP (mmHg) 106 02/04/2020 8:30 AM ACCESS SERVICE REPRESENTATIVE Allison Quinn RN * Rader Fall Risk Question Answer Date of Assessment Author History of Falling 25 02/04/2020 8:30 AM Allison Morley RN Secondary Diagnosis 15 02/04/2020 8:30 AM Allison Comer RN Ambulatory Aids 15 02/04/2020 8:30 AM Allison Shanks RN Intravenous Therapy/Heparin/Saline Lock 0 02/04/2020 8:30 AM Allison Morley RN Gait/Transferring 10 02/04/2020 8:30 AM Allison Morley RN Mental Status 0 02/04/2020 8:30 AM ACCESS SERVICE REPRESENTATIVE Allison Quinn RN Auto Low/High - if selected proceed to interventions (retired) High risk-per unit/hospital protocol 02/04/2020 8:30 AM Allison Morley RN Rader Fall Risk Score (Score >= 45 places fall precaution order) 50 02/04/2020 8:30 AM ACCESS SERVICE REPRESENTATIVE Allison Quinn RN * Archie Scale Question Answer Date of Assessment Author Sensory Perceptions 4 02/04/2020 8:30 AM Allison Comer RN Moisture 3 02/04/2020 8:30 AM Allison Morley RN Activity 3 02/04/2020 8:30 AM Allison Morley RN Mobility 3 02/04/2020 8:30 AM Allison Morley RN Nutrition 3 02/04/2020 8:30 AM Allison Morley RN Friction and Shear 2 02/04/2020 8:30 AM Allison Morley RN Archie Scale Score 18 02/04/2020 8:30 AM Allison Morley RN * Fall Risk Interventions Question Answer Date of Assessment Author All Low Fall Interventions Applied Yes 02/04/2020 8:30 AM Allison Morley RN All Moderate Fall Interventions Applied Yes 02/04/2020 8:30 AM Allison Morley RN All Moderate Fall Risk Interventions EXCEPT: Gait belt at bedside 02/04/2020 8:30 AM Allison Morley RN All High Fall Risk Interventions Applied No 02/04/2020 8:30 AM Allison Morley RN All High Risk Interventions EXCEPT: Bed alarm;Chair alarm;Near RN station/area 02/03/2020 7:00 PM CDT Addie Culp RN Additional Interventions Applied Over-bed table on non-exit side;Exit bed on strong/preferred side 02/04/2020 8:30 AM ACCESS SERVICE REPRESENTATIVE Wall, Allison Eboni, RN Reason For Exception(s) abd surgery 02/04/20 20 8:30 AM ACCESS SERVICE REPRESENTATIVE Allison Quinn RN Reason For Exception(s) calls miguel cabrera for assistance. A&Ox4 02/03/2020 7:00 PM CDT Addie Culp RN * B.M.A.T. - Bedside Mobility Assessment Tool for Nurses Question Answer Date of Assessment Author Is patient able to participate in the BMAT? Yes 02/03/2020 7:00 PM CDT Addie Culp RN BMAT Level Level 3 - Yellow 02/03/2020 7:00 PM CDT S mitAddie camacho RN Level 3 Equipment Use assistive device such as cane/walker 02/03/2020 7:00 PM TRISHAT Addie Culp RN * Pressure Injury Prevention Question Answer Date of Assessment Author Pressure Ulcer Prevention Interventions Keep skin clean and dry (Sensory Perception/Moistur e) 02/04/2020 8:30 AM ACCESS SERVICE REPRESENTATIVE Allison Quinn RN Protective Foam Dressing Location Coccyx 02/03/2020 8:55 AM CDT Allison Quinn RN * Integumentary Question Answer Date of Assessment Author Skin Color Appropriate for ethnicity 02/04/2020 8:30 AM ACCESS SERVICE REPRESENTATIVE Allison Quinn RN Skin Condition/Temp Warm;Dry 02/04/2020 8 :30 AM Allison Morley RN Skin Integrity Surgical incision 02/04/2020 8:3 0 AM ACCESS SERVICE REPRESENTATIVE Allison Quinn RN Skin Turgor Non-tenting 02/04/2020 8:30 AM ACCESS SERVICE REPRESENTATIVE Allison Quinn RN Integumentary Additional Assessments Yes-Archie 02/04/2020 8:30 AM Allison Morley RN Integumentary (WDL) X 02/04/2020 8 :30 AM ACCESS SERVICE REPRESENTATIVE Allison Quinn RN Skin Location abdomen, rectum 02/04/2020 8:30 AM ACCESS SERVICE REPRESENTATIVE Allison Quinn RN * Wound (LDAs) Question Answer Date of Assessment Author Type of Wound (LDA) Surgical site 02/04/2020 8:[address] Allison Quinn RN * Question Answer Date of Assessment Author BP Location Left arm 02/04/2020 8:30 AM ACCESS SERVICE REPRESENTATIVE Allison Quinn RN BP Method Automatic 02/04/2020 8:30 AM ACCESS SERVICE REPRESENTATIVE Allison Quinn RN * Question Answer Date of Assessment Author RUE Edema No pitting 02/04/2020 8:30 AM ACCESS SERVICE REPRESENTATIVE Allison Quinn RN RLE Edema No pitting 02/04/2020 8:30 AM ACCESS SERVICE REPRESENTATIVE Allison Quinn RN LUE Edema No pitting 02/04/2020 8:30 AM ACCESS SERVICE REPRESENTATIVE Allison Quinn RN LLE Edema No pitting 02/04/2020 8:30 AM ACCESS SERVICE REPRESENTATIVE Allison Quinn RN Edema Left upper extremity ;Right upper extremity 02/04/2020 8:30 AM ACCESS SERVICE REPRESENTATIVE Allison Quinn RN * Question Answer Date of Assessment Author Percent Meal Eaten (%) 0 02/04/2020 8:30 AM ACCESS SERVICE REPRESENTATIVE Allison Quinn RN * Question Answer Date of Assessment Author Bed In Lowest Position Yes 02/04/2020 10:00 A M Allison Morley RN Bed Wheels Locked Yes 02/04/2020 10:00 AM Allison Morley RN * Fall Risk Interventions Question Answer Date of Assessment Author All Low Fall Interventions Applied Yes 02/04/2020 8:30 AM Allison Morley RN All Moderate Fall Interventions Applied Yes 02/04/2020 8:30 AM Allison Morley RN All Moderate Fall Risk Interventions EXCEPT: Gait belt at bedside 02/04/2020 8:30 AM Allison Morley RN All High Fall Risk Interventions Applied No 02/04/2020 8:30 AM Allison Morley RN All High Risk Interventions EXCEPT: Bed alarm;Chair alarm;Near RN station/area 02/03/2020 7:00 PM CDT Addie Culp RN Additional Interventions Applied Over-bed table on non-exit side;Exit bed on strong/preferred side 02/04/2020 8:30 AM Allison Morley RN Reason For Exception(s) abd surgery 02/04/20 20 8:30 AM Allison Morley RN Reason For Exception(s) calls nguyễniat rick for assistance. A&Ox4 02/03/2020 7:00 PM Addie Vega RN * Question Answer Date of Assessment Author Hygiene Patient refused 02/04/2020 8:30 AM ACCESS SERVICE REPRESENTATIVE Allison Gillespie RN * Nutrition Question Answer Date of Assessment Author Feeding Level of Assistance Able to feed self 02/04/2020 8:30 AM ACCESS SERVICE REPRESENTATIVE Allison Quinn RN Appetite Good 02/03/2020 10:50 AM CDT Paige Benites CMA documented as of this encounter Mental Status * Question Answer Entry Date Author Level of Consciousness Alert;Awake 0 8:30 AM Allison Morley RN Orientation Oriented X4 (person, place, time, situation) 02/04/2020 8:30 AM Allison Morley RN Neuro (WDL) WDL 02/04/2020 8:30 AM Allison Morley RN documented in this encounter Plan of Treatment Not on file documented as of this encounter Visit Diagnoses Not on filedocumented in this encounter Care Teams Smoke Control Supervisor Relationship Specialty Start Date End Date Unknown, Notinfile PCP - General 01/16/20 12/11/20 [place] [address] [place] [address] [place] [address] [id number] PCP - General Internal Medicine 12/12/20 Marvin Riddle MD [address] [place] [address] [phone] Referring Physician Surgery 11/30/17 [place] [address] [place] [address] [place] [address] [phone] Referring Physician Internal Medicine 11/20/19 [place] [address] [place] [address] [place] [address] [phone] Educational Psychologist Internal Medicine 11/20/19 [place] [address] [place] [address] [place] [id number] Consulting Physician General Surgery 11/20/19 [place] [address] [address] Surgeon Colon and Rectal Surgery 11/20/19 Lino Valero MD Reactor Kettle Operator Dermatology 07/14/20 Sea Parker MD [address] [phone] Consulting Physician Gastroenterology 01/03/24 Ana Luisa Reed NP [address] [facility] [address] [place] [address] Nurse Practitioner Nurse Practitioner 01/04/24 documented as of this encounter
--- OUTSIDE RECORDS SUMMARY | 2025-02-23 10:25 | XMS_ITS | Encounter Summary ---
Author Organization [facility] Healthcare Address [address] [place] [address] Care Team Providers Care Computing Systems Mechanic Name Role Phone Marvin Riddle MD Unavailable [phone] Angelita Smith MD Unavailable [phone] Dilma Moser MD Unavailable [phone] Pratibha Bailey MD Unavailable [phone] Tl Munoz MD Unavailable [phone] Unknown, Notinfile Primary Care Provider Unavail able Lino Valero MD Unavailable [phone] Angelita Smith MD Primary Care Provider [phone] Sea Parker MD Unavailable [phone] Ana Luisa Reed NP Unavailable [phone] Encounter Details Date Type Department Care Team (Late st Contact Info) Description 05/12/2020 Documentation [facility] Surgeon [address] [place] [address] Rocio Langston MD [address] [place] [phone] [place], [place] [id number] Social History Tobacco Use Types Packs/Day Years [...] week 01/31/2020 How often do you attend temple or mormonism serv ices? 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 Not on file Not on file documented as of this encounter Plan of Treatment Not on file documented as of this encounter Visit Diagnoses Not on filedocumented in this encounter Care Teams Computing Systems Mechanic Relationship Specialty Start Date End Date Unknown, Notinfile PCP - General 01/16/20 12/11/20 [place] [id number] [address] [address] PCP - General Internal Medicine 12/12/20 Marvin Riddle MD [address] [address] Referring Physician Surgery 11/30/17 [place] [address] [place] [address] [place] [address] [phone] Referring Physician Internal Medicine 11/20/19 [place] [address] [place] [address] [place] [address] [phone] Javascript Software Engineer Internal Medicine 11/20/19 [place] [address] [place] [address] [place] [address] [phone] Consulting Physician General Surgery 11/20/19 [place] [address] [place] [address] [place] [address] [phone] Surgeon Colon and Rectal Surgery 11/20/19 Lino Valero MD Horticultural Nursery Assistant Dermatology 07/14/20 Sea Parker MD [address] [address] Consulting Physician Gastroenterology 01/03/24 Ana Luisa Reed NP [address] [address] Nurse Practitioner Nurse Practitioner 01/04/24 documented as of this encounter
--- NOTE | 2025-02-23 14:03 | WPDPFTINT ---
PFT Procedure Performed PFT Procedure Performed Spirometry with Pre/Post Bronchodilator Plethysmography (Lung Vol) Diffusing Cap (DLCO) Flow Vol Loop PFT Interpretation This is a pulmonary function test with pre and post-bronchodilator spirometry, plethysmography and diffusing capacity. The test was performed and results interpreted in accordance with the 2019 and 2005 ATS/ERS Task Force guidelines respectively using the Global Lung Function Initiative-2012 reference equations. Patient demonstrated good effort and cooperation. Reproducibility criteria were met. The quality of the pre bronchodilator spirometry maneuver was Grade A and post bronchodilator spirometry maneuver was Grade A. Findings: Spirometry: There is decreased maximal expiratory airflow at all lung volumes with concave expiratory flow tracing. The contour the inspiratory flow tracing is normal. The pre bronchodilator FVC is 3.36 L, 84% predicted. The pre bronchodilator FEV1 is 1.09 L, 36% predicted. The pre bronchodilator FEV1: FVC ratio is 33%. The post bronchodilator FVC is 3.19 L, representing a 5% decrease. The post bronchodilator FEV1 is 1.06 L, representing a 3% decrease. The post bronchodilator FEV1: FVC ratio is 33%. Plethysmography: The total lung capacity 7.02 L, 103% predicted. The functional residual capacity is 5.17 L, 143% predicted. The residual volume is 3.66 L, 151% predicted. The residual volume: Total lung capacity ratio is 52%. Diffusing capacity: The diffusing capacity unadjusted for hemoglobin and carboxyhemoglobin is 11.6, 46% predicted. The diffusing capacity adjusted for alveolar volume is 2.79, 71% predicted. In comparison to previous pulmonary function testing on 04/23/2021 in which only spirometry without bronchodilator was performed, the pre bronchodilator FVC is increased from 2.76 L to 3.36 L. The pre bronchodilator FEV1 is unchanged from 1.00 L to 1.09 L. the total lung capacity is unchanged from 7.29 L to 7.02 L. The functional residual capacity is unchanged from 5.46 L to 5.17 L. The residual volume is decreased from 4.53 L to 3.66 L. the residual volume:Total lung capacity ratio is decreased from 62% to 52%. Diffusing capacity unadjusted for hemoglobin and carboxyhemoglobin is unchanged from 10.8 to 11.6. The diffusing capacity adjusted for alveolar volume is unchanged from 2.99 to 2.79. Impression: There is a severe obstructive abnormality. There is no significant improvement after inhaling a single dose of albuterol. The increase in residual volume to total lung volume ratio is consistent with hyperinflation from an obstructive abnormality. The diffusing capacity unadjusted for hemoglobin and carboxyhemoglobin is moderately decreased and normalizes when adjusted for alveolar volume. in comparison to previous pulmonary function testing on 04/23/2021, there has been a greater than anticipated time dependent increase in the FVC. There has been a greater than anticipated time dependent decrease in the residual volume and residual volume: Total lung capacity ratio with no significant change in the FEV1, total lung capacity, functional residual capacity and diffusing capacity. Clinical correlation is recommended.
== END 2025-02-23 10:20 | disposition home or self-care (01) ==
PROVIDERS: PCP Internal Medicine; Visit Provider Nurse Practitioner Family
DX: R94.2 Abnormal results of pulmonary function studies (principal); J43.9 Emphysema, unspecified
CPT/HCPCS: 94060; 94726; 94729